=== PATIENT | female | born 1945 | race Caucasian/White ===

== ENCOUNTER → 2017-08-19 | Outpatient (CLI) | payer MEDICARE, OTHER ==
--- NOTE | 2017-08-19 14:49 | US ---
EXAMINATION TYPE: US pelvis complete transvag DATE OF EXAM: 08/19/2017 COMPARISON: CT CLINICAL HISTORY: R68.89 Abnormal pelvic exam. Pt states Dr may have felt right ovarian mass TECHNIQUE: Transvaginal (TV) and Transabdominal (TA) Date of LMP: Age 44 EXAM MEASUREMENTS: Uterus: 6.4 x 2.3 x 4.6 cm Endometrial Stripe: 0.3 cm 1. Uterus: Anteverted wnl for postmenopausal 2. Endometrium: wnl 3. Right Ovary: Obscured by overlying bowel gas 4. Left Ovary: Obscured by overlying bowel gas 5. Bilateral Adnexa: Many peristalsing bowel loops and dilated blood vessels seen bilateral adnexas 6. Posterior cul-de-sac: wnl IMPRESSION: 1. Paraovarian varices.
== END | disposition home or self-care (01) ==
LOC: RADUSWWP 12:59
PROVIDERS: ATTEND Obstetrics & Gynecology
DX: I86.2 Pelvic varices (principal)
CPT/HCPCS: 76830; 76856; 77063; 77080

== ENCOUNTER → 2017-08-19 | Outpatient (CLI) | payer MEDICARE, OTHER ==
--- NOTE | 2017-08-19 15:15 | BD ---
EXAMINATION TYPE: MG DEXA axial skeleton. DATE OF EXAM: 08/19/2017 COMPARISON: NONE CLINICAL HISTORY: M85.9 disorder of bone density Height: 5 FT 4 1/2 Weight: 131 FRAX RISK QUESTIONS: Alcohol (3 or more units per day): NO Family History (Parent hip fracture): NO Glucocorticoids (More than 3mos): NO (Ex: prednisone, prednisolone, methylprednisolone, dexamethasone, and hydrocortisone). History of Fracture in Adulthood: YES Secondary Osteoporosis: 1. Type 1 Diabetes: NO 2. Hyperthyroidism: NO 3. Menopause before 45: YES 4. Malnutrition: NO 5. Chronic liver disease: NO Rheumatoid Arthritis: NO Current Tobacco Use: NO RISK FACTORS HISTORY OF: History of Wrist Fracture: PHILIP WRISTS When: 2011 Surgery to Spine/Hip(right/left)/Wrist (right/left): PHILIP WRISTS When: 2011 Family History of Osteoporosis: YES Active: YES Postmenopausal woman: AGE 44 Take estrogen and/or progesterone medications: AGE 44- 56 Lost more than 2 inches in height since high school: YES MEDICATIONS: Additional Medications: PIROXITINE, CLONAZIPAM, HYDROCODONE, Additional History: SLEEP DISORDER EXAM MEASUREMENTS: Bone mineral densitometry was performed using the [employer] System. Bone mineral density as measured about the Lumbar spine is: ----- L1-L4(G/cm2): 0.998 T Score Values are as follows: ----- L2: -2.3 ----- L3: -1.5 ----- L4: -0.7 ----- L1-L4: -1.5 Bone mineral density has: INCREASED 0.7 % since study of: 2014 Bone mineral density about the R hip (g/cm2): 0.770 Bone mineral density about the L hip (g/cm2): 0.715 T Score values are as follows: -----R Neck: -1.9 -----L Neck: -2.3 -----R Total: -1.4 -----L Total: -1.8 Bone mineral density has: INCREASED 0.6 % since study of: 2014 IMPRESSION: Osteopenia NOTE: T-SCORE=SD OF THE YOUNG ADULT MEAN.
--- NOTE | 2017-08-24 07:13 | MM ---
Reason for exam: screening (asymptomatic). Last mammogram was performed 1 year and 3 months ago. History: Patient is postmenopausal and has history of other cancer at age 64. Family history of breast cancer in mother at age 85, breast cancer in paternal cousin at age 48, breast cancer in maternal aunt, and breast cancer in maternal grandmother. Benign core biopsy of the left breast, 1991. Took estrogen for 13 years beginning at age 44. Took progesterone for 13 years beginning at age 44. Physical Findings: A clinical breast exam by your physician is recommended on an annual basis and results should be correlated with mammographic findings. MG 3D Screening Mammo W/Cad Bilateral CC and MLO view(s) were taken. Prior study comparison: June 02, 2016, bilateral MG 3d screening mammo w/cad. May 30, 2015, bilateral MG screening mammo w CAD. There are scattered fibroglandular densities. No significant changes when compared with prior studies. ASSESSMENT: Benign, BI-RAD 2 RECOMMENDATION: Routine screening mammogram of both breasts in 1 year.
== END | disposition home or self-care (01) ==
LOC: RADMAMWWP 13:02
PROVIDERS: ATTEND Obstetrics & Gynecology
DX: Z12.31 Encounter for screening mammogram for malignant neoplasm of breast (principal); M85.80 Other specified disorders of bone density and structure, unspecified site; Z80.3 Family history of malignant neoplasm of breast; M89.9 Disorder of bone, unspecified; Z13.820 Encounter for screening for osteoporosis
CPT/HCPCS: 77080; 77063; G0202

== ENCOUNTER → 2017-10-12 | Outpatient (CLI) | payer MEDICARE, OTHER ==
--- NOTE | 2017-10-12 14:50 | CTL ---
EXAMINATION TYPE: CT Low Dose Lung DATE OF EXAM ORDERED: 10/12/2017 COMPARISON: None HISTORY: . Low Dose CT Lung Screening CT DLP: 56.[address] CTDI: 1.6 mGy IV CONTRAST USED: None. SCREENING VISIT: First visit COMPARISON: None. TECHNIQUE: Low dose computed tomography scan was performed through the chest at 1 millimeter thick se ctions and reconstructed images in the coronal plane at [address] DIAGNOSTIC QUALITY: Satisfactory FINDINGS: LUNG NODULES: Not presentLeft lung: no nodules identified.Right lung: no nodules identified. LUNGS: COPD: Severity: None Fibrosis: Severity:None Lymph nodes: None Other findings: None RIGHT PLEURAL SPACE: Effusion: None Calcification: None Thickening: None Pneumothorax: None LEFT PLEURAL SPACE: Effusion: None Calcification: None Thickening: None Pneumothorax: None HEART: Heart Size: Mildly enlarged Coronary calcification: Mild Pericardial effusion: None OTHER FINDINGS: Upper abdomen: No significant abnormality Bony thorax: Degenerative changes Supraclavicular region: No significant abnormalityOther: No significant abnormalityI IMPRESSION: Negative FOLLOW UP CT CHEST RECOMMENDATION: Follow-up screening in one year CT LUNG RAD: LUNG RAD CATEGORY 1
--- NOTE | 2017-10-13 12:50 | ECHOF ---
Referral Reason:I34.0 Nonrheumatic mitral (valve) insufficiency... MEASUREMENTS -------- HEIGHT: 165.1 cm WEIGHT: 58.5 kg BP: RVIDd: 3.2 cm (< 3.3) IVSd: 0.7 cm (0.6 - 1.1) LVIDd: 3.8 cm (3.9 - 5.3) LVPWd: 0.8 cm (0.6 - 1.1) IVSs: 0.9 cm LVIDs: 2.9 cm LVPWs: 1.0 cm LAESV Index (A-L): 29.76 ml/m Ao Diam: 2.5 cm (2.0 - 3.7) AV Cusp: 1.6 cm (1.5 - 2.6) LA Diam: 3.7 cm (2.7 - 3.8) RAP: 5.00 mmHg RVSP: 39.24 mmHg FINDINGS -------- Sinus rhythm. This was a technically good study. The left ventricular size is normal. There is mild concentric left ventricular hypertrophy. Overa ll left ventricular systolic function is low-normal with, an EF between 50 - 55 %. The right ventricle is mildly enlarged. LA is moderately dilated 34-39 ml/m2 The right atrium is moderately enlarged. The aortic valve is trileaflet and appears structurally normal. There is no evidence of aortic regu rgitation. The mitral valve leaflets are mildly thickened. Zujvxvqr-dv-eznseu mitral regurgitation is present. There is mild mitral valve prolapse. Severe tricuspid regurgitation present. There is mild pulmonary hypertension. The right ventricul ar systolic pressure, as measured by Doppler, is 39.24mmHg. Mild prolapse of the septal tricuspid v alve leaflet. Trace/mild (physiologic) pulmonic regurgitation. The aortic root size is normal. There is no pericardial effusion. CONCLUSIONS -------- 1. Sinus rhythm. 2. This was a technically good study. 3. The left ventricular size is normal. 4. There is mild concentric left ventricular hypertrophy. 5. Overall left ventricular systolic function is low-normal with, an EF between 50 - 55 %. 6. LA is moderately dilated 34-39 ml/m2 7. The right atrium is moderately enlarged. 8. The aortic valve is trileaflet and appears structurally normal. 9. The mitral valve leaflets are mildly thickened. 10. Hkpbdssj-qc-sifpii mitral regurgitation is present. 11. There is mild mitral valve prolapse. 12. Severe tricuspid regurgitation present. 13. There is mild pulmonary hypertension. 14. The right ventricular systolic pressure, as measured by Doppler, is 39.24mmHg. 15. Trace/mild (physiologic) pulmonic regurgitation. 16. The aortic root size is normal. 17. There is no pericardial effusion. CODER: Tasia Fox RDCS
== END | disposition home or self-care (01) ==
LOC: RADECHMAIN 13:13
PROVIDERS: ATTEND Internal Medicine
DX: Z12.2 Encounter for screening for malignant neoplasm of respiratory organs (principal); I08.1 Rheumatic disorders of both mitral and tricuspid valves; I27.20 Pulmonary hypertension, unspecified; Z87.891 Personal history of nicotine dependence
CPT/HCPCS: 93306; G0297

== ENCOUNTER 2017-10-21 05:57 | Day surgery (SDC) | payer MEDICARE, OTHER ==
[2017-10-20 15:03] VITALS: BMI 21.3
[2017-10-21] MEDS ORDERED: NITROGLYCERIN SL TABS 0.4 MG TAB SUBLINGUAL PRN (06:01)
[2017-10-21] MEDS ORDERED: ASPIRIN 325 MG TAB PO STA (06:01)
[2017-10-21] MEDS ORDERED: ALPRAZolam 0.5 MG TAB PO PRN (06:01)
[2017-10-21] MEDS ORDERED: SODIUM CHLORIDE 0.9% 1,000 ML in EMPTY BAG 1 BAG IV ONE (06:01)
[2017-10-21] MEDS ORDERED: ALPRAZolam 0.25 MG TAB PO PRN (06:01)
[2017-10-21] MEDS ORDERED: MIDAZOLAM 2 MG/2 ML VIAL ONE (06:46)
[2017-10-21] MEDS ORDERED: fentaNYL (PF) 50 MCG/ML 2 ML AMP ONE (06:46)
[2017-10-21] MEDS ORDERED: SODIUM CHLORIDE 0.9% 1,000 ML IV ONE ×2 (06:51→08:26)
[2017-10-21 07:01] VITALS: TEMP 97.9
[2017-10-21] MEDS ORDERED: BENZOCAINE SPRAY 1 CAN MUCOUS MEM ONE (07:01)
[2017-10-21 07:09] LABS: Basophils % (A) 1 %; Eosinophils # (A) 0.1 k/uL (0-0.7); Eosinophils % (A) 3 %; HGB 12.4 gm/dL (11.4-16.0); Lymphocytes # (A) 1.3 k/uL (1.0-4.8); Lymphocytes % (A) 36 %; MCH 30.1 pg (25.0-35.0); MCHC 31.8 g/dL (31.0-37.0); MCV 94.5 fL (80.0-100.0); Mean Platelet Volume 7.6; Monocytes # (A) 0.2 k/uL (0-1.0); Monocytes % (A) 5 %; Neutrophils # (A) 1.9 k/uL (1.3-7.7); Neutrophils % (A) 52 %; Platelet Count 170 k/uL (150-450); RBC 4.12 m/uL (3.80-5.40); RDW 13.7 % (11.5-15.5); WBC 3.6 k/uL (3.8-10.6)
[2017-10-21] MEDS ORDERED: MIDAZOLAM 2 MG/2 ML VIAL IV ONE (07:10)
[2017-10-21] MEDS ORDERED: fentaNYL (PF) 50 MCG/ML 2 ML AMP IV ONE (07:10)
[2017-10-21 07:20] VITALS: PULSE 67
[2017-10-21 07:22] LABS: Anion Gap 9 mmol/L; Blood Urea Nitrogen 24 mg/dL (7-17); Calcium 9.3 mg/dL (8.4-10.2); Carbon Dioxide 28 mmol/L (22-30); Chloride 108 mmol/L (98-107); Glucose 84 mg/dL (74-99); Potassium 4.3 mmol/L (3.5-5.1); Sodium 145 mmol/L (137-145)
[2017-10-21] MEDS ORDERED: MIDAZOLAM 2 MG/2 ML VIAL IVP ONE (07:52)
[2017-10-21] MEDS ORDERED: LIDOCAINE 2% INJ 20 MG/ML SQ ONE (07:55)
[2017-10-21 08:20] LABS: O2 Sat Blood Gas 98.3 %
[2017-10-21] MEDS ORDERED: IOHEXOL 350 MG/ML 125ML BOTTLE INJ ONE (08:26)
[2017-10-21 08:27] LABS: O2 Sat Blood Gas 70.8 %
[2017-10-21 08:30] LABS: O2 Sat Blood Gas 70.5 %
[2017-10-21] MEDS ORDERED: RX INFO: IV CONTRAST WAS GIVEN 1 EACH MISC MISCELLANE PRN (08:37)
[2017-10-21] MEDS ORDERED: HYDROcodone/APAP 5-325MG 1 EACH TAB PO PRN (08:38)
[2017-10-21] MEDS ORDERED: TRIAMTERENE-HCTZ 37.5-25MG 1 EACH TAB PO PRN (08:38)
[2017-10-21] MEDS ORDERED: NAPROXEN 250 MG TAB PO PRN (08:38)
[2017-10-21] MEDS ORDERED: SODIUM CHLORIDE 0.9% 1,000 ML IV SCH (08:45)
[2017-10-21] MEDS ORDERED: PARoxetine 10 MG TAB PO SCH (09:00)
[2017-10-21] MEDS ORDERED: NON-FORMULARY DRUG (Vitamin B Complex [Vitamin B Complex] 1 EACH) PO SCH (09:00)
[2017-10-21] MEDS ORDERED: ATORVASTATIN 40 MG TAB PO SCH (09:00)
[2017-10-21] MEDS ORDERED: PSYLLIUM HUSK 100% 6 GM PACKET PO SCH (09:00)
[2017-10-21] MEDS ORDERED: NON-FORMULARY DRUG (Cholecalciferol (Vitamin D3) [Vitamin D3] 2,000 UNIT) PO SCH (09:00)
--- NOTE | 2017-10-21 09:02 | ECHOT ---
TRANSESOPHAGEAL ECHOCARDIOGRAM INDICATION: Evaluation of mitral valve. PROCEDURE: After explaining the procedure to the patient as well as risks and complications, the blood pressure, heart rate, O2 saturation was monitored. Throat was sprayed with Cetacaine. She received 2 mg of intravenous Versed and 50 mcg intravenous fentanyl. After achieving moderate conscious sedated state, the probe was introduced in the esophagus without difficulty. Images were obtained. Following that, the probe was removed. FINDINGS: Left atrial size is mildly dilated. Left atrial appendage is normal. Left ventricular size is normal. The ejection fraction is estimated 50% to 55%. The aortic valve appears to be normal. The mitral valve revealed mild prolapse. The tricuspid valve is mildly thickened. No pericardial effusion was noted. Contrast bubble study revealed a [id number]-vc-ukem shunting with Valsalva maneuver across a patent foramen ovale. The descending thoracic aorta appears to be normal. Doppler pulse wave and color Doppler obtained and revealed a mild to moderate mitral with moderate to severe tricuspid regurgitation. There was no evidence of shunting by color Doppler study. CONCLUSION: 1. Mildly dilated left atrium with normal appearance of left atrial appendage. 2. Left ventricular ejection fraction of 50% to 55%. 3. Mild mitral valve prolapse with mild to moderate mitral regurgitation. 4. Moderate to severe tricuspid regurgitation with thickening of the tricuspid valve leaflets. 5. Evidence of patent foramen ovale with aragt-pq-zueu shunting with Valsalva maneuver and contrast bubble study. 6. No pericardial effusion. 7. Normal appearance of the descending thoracic aorta. MMODL / IJN: [id number] /
--- NOTE | 2017-10-21 09:44 | CC ---
CARDIAC CATHETERIZATION REPORT HISTORY: Ms. Ag is a 71-year-old female with a known history of hyperlipidemia who recently has been complaining of progressive fatigue and was noted to have a heart murmur. Her echocardiogram showed a moderate mitral with moderate to severe tricuspid regurgitation. In view of that, recommendation made regarding cardiac catheterization. The procedure, as well as the risks and complications, were discussed with the patient who is in full understanding and agreement. PROCEDURE: Patient was brought to roofing laborer in a fasting semi-sedated state after receiving fentanyl Benadryl and achieving moderate conscious sedated state, using Xylocaine anesthesia and Seldinger technique, a 6-Argentine sheath was introduced in the right femoral artery. A 8-Argentine sheath in right femoral vein. A right heart catheterization was performed using [place]-Twin catheter. Multiple pressure and samples were obtained. Cardiac output by thermodilution was calculated. Following that, selective right and left coronary angiography performed using a 6-Argentine 4 bend right and left Amaris catheter. Multiple views of the coronary arteries, including hemiaxial views, were obtained. Following that, a 6-Argentine tight pigtail catheter was placed in the left ventricle and a 30 degree CALVO view of the left ventricle was obtained. Following that, the catheter and sheath were removed. Hemostasis was obtained with compression of the right groin. There were no immediate complications. Patient was returned to her room in stable condition. FINDINGS: HEMODYNAMICS: Pulmonary artery systolic pressure of 27 with a diastolic of 12 and a mean of 17 mmHg. Pulmonary capillary wedge pressure, A-wave of 14, V-wave 16, with a mean of 10 mmHg. Right ventricular systolic pressure of 28 with an end-diastolic of 8 mmHg. Right atrial A-wave of 10 and V-wave of 11 with a mean of 9 mmHg. Left ventricle end-diastolic pressure of 16 to 20 mmHg. There was no gradient across the aortic valve. Cardiac output by thermodilution of 3.5 L/minute and by Sd of 3.4 L/minute. The RA saturation is 71. PA saturation 71. Femoral artery saturation of 98%. CORONARIES: 1. LEFT MAIN: This is a large-sized vessel, bifurcating in left circumflex, left anterior descending artery. Left main coronary artery is without any significant obstructive coronary disease. 2. LEFT ANTERIOR DESCENDING ARTERY: This is a large-sized vessel, reaching toward the apex, tapers down in distal third. Gives rise to a large diagonal branch proximally. The left anterior descending artery and its branches have no evidence of obstructive coronary artery disease. 3. LEFT CIRCUMFLEX: This is a nondominant vessel, moderate in caliber, giving rise to 3 obtuse marginal branches. The second one is the largest in caliber. The left circumflex and its branches have no evidence of obstructive disease. 4. RIGHT CORONARY ARTERY: This is a dominant vessel, moderate caliber, has a posterior takeoff. The right coronary artery bifurcated distally to PDA and posterolateral segment and branches. The right coronary artery and its branches have no evidence of obstructive coronary disease. 5. LEFT VENTRICULOGRAM: Left ventriculogram performed in performed in 30 degree CALVO view and revealed normal left ventricular size. The ejection fraction is 50% to 55%. There was 2 to 3+ mitral regurgitation, some of it induced by arrhythmia. CONCLUSION: 1. Normal coronary arteries. 2. Moderate mitral regurgitation. RECOMMENDATIONS: At this time, I will recommend continue medical therapy with aggressive coronary risk modifications being initiated, with close followup for the mitral valve. Those findings and recommendations were discussed with the patient and her family who are in full understanding and agreement. DURATION OF PROCEDURE: 40 minutes. MMODL / IJN: [id number] /
--- NOTE | 2017-10-21 09:47 | CC ---
CARDIAC CATHETERIZATION REPORT October 21, 2017 Dr. Frederick Banegas RE: Jaz Ag Dear Dr. Ag: I had the opportunity to perform cardiac catheterization on Ms. Ag at [facility] on the 21 of October. A full copy of the procedure note will be forwarded to you. In brief, she was found to have no evidence of obstructive coronary artery disease with evidence of moderate mitral regurgitation. Based on those findings, I recommend continued medical therapy with close followup with her mitral valve. Depending on her progress, further recommendation will be made. Thank you again for allowing me the opportunity to participate in this patient's care. Please feel free to call with any questions. Sincerely, MD SANJUANITA VitaleL / NEILN: [phone] /
[2017-10-21 14:53] VITALS: RESP 18
[2017-10-21 15:35] VITALS: BP 95/62
[2017-10-21] MEDS ORDERED: clonazePAM 1 MG TAB PO SCH (21:00)
[2017-10-22] MEDS ORDERED: ASPIRIN 81 MG PO SCH (09:00)
== END 2017-10-21 15:45 | disposition home or self-care (01) ==
LOC: CATHCVL 05:57
PROVIDERS: ATTEND Internal Medicine Interventional Cardiology
DX: I08.1 Rheumatic disorders of both mitral and tricuspid valves (principal); Q21.1 Atrial septal defect; E78.2 Mixed hyperlipidemia; R01.1 Cardiac murmur, unspecified; I42.9 Cardiomyopathy, unspecified; E78.00 Pure hypercholesterolemia, unspecified; Z82.49 Family history of ischemic heart disease and other diseases of the circulatory system; Z87.891 Personal history of nicotine dependence; Z79.82 Long term (current) use of aspirin; Z79.899 Other long term (current) drug therapy
CPT/HCPCS: 93312; 93320; 93325; 93460; 80048; 85018; 82810; 85025; C1894 ×2; C1769; J2001; J2250; J3010; Q9967

== ENCOUNTER → 2017-12-09 | Outpatient (CLI) | payer MEDICARE, OTHER ==
[2017-12-09 10:01] LABS: ALT 25 U/L (9-52); AST 30 U/L (14-36); Cholesterol 188 mg/dL (<200); HDL Cholesterol 88 mg/dL (40-60); LDL Cholesterol,Calculated 81 mg/dL (0-99); Triglycerides 95 mg/dL (<150)
== END | disposition home or self-care (01) ==
LOC: LABWHC1 09:16
PROVIDERS: ATTEND Internal Medicine Interventional Cardiology
DX: E78.2 Mixed hyperlipidemia (principal)
CPT/HCPCS: 36415; 80061; 84450; 84460

== ENCOUNTER → 2018-09-01 | Outpatient (CLI) | payer MEDICARE, OTHER ==
--- NOTE | 2018-09-08 14:09 | MM ---
Reason for exam: screening (asymptomatic). Last mammogram was performed 1 year ago. History: Patient is postmenopausal and has history of other cancer at age 64. Family history of breast cancer in mother at age 85, breast cancer in paternal cousin at age 48, breast cancer in maternal aunt, and breast cancer in maternal grandmother. Benign core biopsy of the left breast, 1991. Took estrogen for 13 years beginning at age 44. Took progesterone for 13 years beginning at age 44. MG 3D Screening Mammo W/Cad Bilateral CC and MLO view(s) were taken. XCCM view(s) were taken of the right breast. Prior study comparison: August 19, 2017, bilateral MG 3d screening mammo w/cad. June 02, 2016, bilateral MG 3d screening mammo w/cad. There are scattered fibroglandular densities. No significant changes when compared with prior studies. ASSESSMENT: Benign, BI-RAD 2 RECOMMENDATION: Routine screening mammogram of both breasts in 1 year.
== END ==
LOC: RADMAMWWP 11:29
PROVIDERS: ATTEND Obstetrics & Gynecology
DX: Z12.31 Encounter for screening mammogram for malignant neoplasm of breast (principal)
CPT/HCPCS: 77063; 77067

== ENCOUNTER → 2018-10-14 | Outpatient (CLI) | payer MEDICARE, OTHER ==
--- NOTE | 2018-10-14 14:59 | US ---
EXAMINATION TYPE: US transvaginal DATE OF EXAM: 10/14/2018 COMPARISON: US 08/19/2017, CT 02/07/2013 CLINICAL HISTORY: R10.2 PELVIC PAIN. TECHNIQUE: . Transvaginal sonographic images of the pelvis were acquired. Date of LMP: Age 50-55 EXAM MEASUREMENTS: Uterus: 5.8 x 2.5 x 3.0 cm Endometrial Stripe: 0.8 cm Right Ovary: Not visualized Left Ovary: Not visualized 1. Uterus: Anteverted Heterogeneous 2. Endometrium: Appears thickened 3. Right Ovary: Obscured by overlying bowel gas 4. Left Ovary: Obscured by overlying bowel gas 5. Bilateral Adnexa: Prominent vessels visualized 6. 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 Endometrium is also thickened for a postmenopaus al female measuring 8 mm. Sonohysterogram could be performed for further evaluation or direct visuali zation.
== END | disposition home or self-care (01) ==
LOC: RADUSWWP 13:35
PROVIDERS: ATTEND Obstetrics & Gynecology
DX: N95.8 Other specified menopausal and perimenopausal disorders (principal); I87.8 Other specified disorders of veins; R10.2 Pelvic and perineal pain
CPT/HCPCS: 76830

== ENCOUNTER → 2018-10-19 | Outpatient (CLI) | payer MEDICARE, OTHER ==
[2018-10-19 15:35] LABS: Basophils # (A) 0.1 k/uL (0-0.2); Basophils % (A) 1 %; Eosinophils # (A) 0.1 k/uL (0-0.7); Eosinophils % (A) 1 %; HCT 41.6 % (34.0-46.0); HGB 13.2 gm/dL (11.4-16.0); Lymphocytes # (A) 1.4 k/uL (1.0-4.8); Lymphocytes % (A) 31 %; MCH 30.4 pg (25.0-35.0); MCHC 31.8 g/dL (31.0-37.0); MCV 95.7 fL (80.0-100.0); Mean Platelet Volume 6.9; Monocytes # (A) 0.3 k/uL (0-1.0); Monocytes % (A) 6 %; Neutrophils # (A) 2.5 k/uL (1.3-7.7); Neutrophils % (A) 57 %; Platelet Count 180 k/uL (150-450); RBC 4.35 m/uL (3.80-5.40); RDW 13.6 % (11.5-15.5); WBC 4.5 k/uL (3.8-10.6)
--- NOTE | 2018-10-20 07:57 | CT ---
EXAMINATION TYPE: CT abdomen pelvis w con DATE OF EXAM: 02/07/2013 COMPARISON: 09/27/2013 HISTORY: Abdominal pain and weight loss CT DLP: 817 mGycm CONTRAST: CT scan of the abdomen and pelvis is performed with Oral Contrast and with IV Contrast, patient injec stephan with 80 mL of Isovue 300. FINDINGS: LUNG BASES-: No visible nodule. No infiltrate. There is evidence of cardiomegaly. LIVER/GB: No calcified gallstones. No space occupying hepatic lesion. Biliary tree is of normal ca liber. PANCREAS: No inflammation. No distinct mass. SPLEEN: No splenic enlargement. No lesion seen. ADRENALS: No nodule. No thickening. KIDNEYS/BLADDER: No hydronephrosis. No nephrolithiasis. No distinct solid renal mass. 1 cm cyst m idpole left kidney. Urinary bladder grossly unremarkable. BOWEL: Normal appendix. Normal bowel caliber. No inflammation. There is evidence of severe fecal st asis. GENITAL ORGANS: No gross abnormality. LYMPH NODES: No greater than 1cm abdominal or pelvic lymph nodes are appreciated. AORTA: No significant abnormality. OSSEOUS STRUCTURES: No significant abnormality is seen. OTHER: No significant additional abnormality is seen. IMPRESSION: 1. Severe constipation. 2. Cardiomegaly. 3. Simple cyst left kidney.
--- NOTE | 2018-10-20 09:38 | CTL ---
EXAMINATION TYPE: CT Low Dose Lung DATE OF EXAM ORDERED: 10/20/2018 COMPARISON: 10/12/2017 HISTORY: . Low Dose CT Lung Screening CT DLP: [address] CTDI: 1.64 mGy IV CONTRAST USED: None. SCREENING VISIT: Second visit COMPARISON: None. TECHNIQUE: Low dose computed tomography scan was performed through the chest at 1 millimeter thick se ctions and reconstructed images in the coronal plane at [address] DIAGNOSTIC QUALITY: Satisfactory FINDINGS: LUNG NODULES: Not presentLeft lung: no nodules identified.Right lung: no nodules identified. LUNGS: COPD: Severity: None Fibrosis: Severity:None Lymph nodes: None Other findings: None RIGHT PLEURAL SPACE: Effusion: None Calcification: None Thickening: None Pneumothorax: None LEFT PLEURAL SPACE: Effusion: None Calcification: None Thickening: None Pneumothorax: None HEART: Heart Size: Mildly enlarged Coronary calcification: Mild Pericardial effusion: None OTHER FINDINGS: Upper abdomen: No significant abnormality Bony thorax: Degenerative changes Supraclavicular region: No significant abnormalityOther: No significant abnormalityI IMPRESSION: Negative FOLLOW UP CT CHEST RECOMMENDATION: Follow-up screening in one year LUNG RAD CATEGORY 1
== END | disposition home or self-care (01) ==
LOC: RADCTMAIN 14:43
PROVIDERS: ATTEND Internal Medicine
DX: Z12.2 Encounter for screening for malignant neoplasm of respiratory organs (principal); K59.00 Constipation, unspecified; N28.1 Cyst of kidney, acquired
CPT/HCPCS: 82565; 84520; 85025; 74177; 36415; G0297; Q9967

== ENCOUNTER 2018-10-25 06:28 | Day surgery (SDC) | payer MEDICARE, OTHER ==
--- NOTE | 2018-10-24 20:20 | P.HPOB ---
History of Present Illness H&P Date: 10/24/18 Chief Complaint: Endometrial thickening This is a 72-year-old female 2 para 2 who presents for dilation and curettage with hysteroscopy secondary to endometrial thickening on ultrasound. Pelvic ultrasound was performed due to pelvic pain. Her uterus measured 5.8 x 2.5 x 3 cm with an endometrial thickness of 8 mm. Neither ovary was well visualized. She denies having any vaginal bleeding. In addition she has been experiencing vaginal introital pain. She has been using estrogen cream with minimal improvement. Obstetrical history: . History of 2 vaginal deliveries. Gynecologic history: No history of sexual transmitted diseases. Social history: She is . She has been with her current boyfriend for several years. She is retired. Review of Systems Constitutional: Reports fatigue, Denies chills, Denies fever Eyes: denies blurred vision, denies pain Ears, nose, mouth and throat: Denies headache, Denies sore throat Cardiovascular: Denies chest pain, Denies shortness of breath Respiratory: Denies cough Gastrointestinal: Reports constipation Genitourinary: Reports dysuria, Reports pelvic pain, Reports vaginal dryness, Denies abnormal vaginal bleeding Menstruation: Reports postmenopausal Musculoskeletal: Reports low back pain, Reports myalgias Integumentary: Denies pruritus, Denies rash Neurological: Reports weakness (Hands) Psychiatric: Reports anxiety, Reports depression, Reports insomnia Endocrine: Reports fatigue, Denies weight change Hematologic/Lymphatic: Reports easy bruising Past Medical History Past Medical History: Cancer, Hyperlipidemia Additional Past Medical History / Comment(s): mitral valve and tricuspid regurgitation, ? mild pulmonary htn, REM sleep disorder, hx skin CA, sleep behavior disorder, fibromyalgia History of Any Multi-Drug Resistant Organisms: None Reported Past Surgical History: Adenoidectomy, Heart Catheterization, Orthopedic Surgery , Tonsillectomy, Tubal Ligation Additional Past Surgical History / Comment(s): PREV d&C, rt thumb arthroplasty 06-03-17,lt thumb arthroplasty,anuja wrist ORIF,pilonidal cyst,breast bx, anuja cataracts, OFELIA Additional Past Anesthesia/Blood Transfusion Reaction / Comment(s): has had trouble waking up from anesthesia Past Psychological History: Anxiety Smoking Status: Former smoker Past Alcohol Use History: Occasional Past Drug Use History: None Reported - Past Family History Mother Family Medical History: Cancer Additional Family Medical History / Comment(s): breast,endometrial,extensive heart hx Father Family Medical History: Cancer, Diabetes Mellitus Additional Family Medical History / Comment(s): prostate Medications and Allergies Home Medications Medication Instructions Recorded Confirmed Type Aspirin 81 mg PO DAILY 10/20/17 10/20/18 History Cholecalciferol (Vitamin D3) 2,000 unit PO DAILY 10/20/17 10/20/18 History [Vitamin D3] HYDROcodone/APAP 5-325MG [[place] 1 tab PO TID 10/20/17 10/20/18 History 5-325] Naproxen Sodium [Aleve] 220 mg PO BID PRN 10/20/17 10/20/18 History PARoxetine [Paxil] 10 mg PO BID 10/20/17 10/20/18 History Prunelax Supplement 1 - 3 cap PO DAILY PRN 10/20/17 10/20/18 History Psyllium Husk 100% [Metamucil 1 dose PO DAILY 10/20/17 10/20/18 History Packet] Triamterene-Hctz 37.5-25Mg 0.5 cap PO DAILY PRN 10/20/17 10/20/18 History [Dyazide 37.5-25 Capsule] clonazePAM [KlonoPIN] 1 mg PO HS 10/20/17 10/20/18 History Estradiol Cream [Estrace Cream 1 applic VAGINAL DIRECTED 10/20/18 10/20/18 History 0.01%] Rosuvastatin Calcium 5 mg PO Q48H 10/20/18 10/20/18 History Allergies Allergy/AdvReac Type Severity Reaction Status Date / Time No Known Allergies Allergy Verified 10/20/18 10:32 Exam Osteopathic Statement: *. No significant issues noted on an osteopathic structural exam other than those noted in the History and Physical/Consult. HEENT: Within normal limits Heart: Regular rate and rhythm Lungs: Clear to auscultation bilaterally Abdomen: Soft, nontender Pelvic exam: Uterus is mildly tender, anteverted, with no adnexal masses, but bilateral tenderness noted. Introitus is slightly inflamed and mildly tender. Extremities: Negative Homans Assessment and Plan (1) Endometrial thickening on ultrasound Status: Acute Code(s): R93.89 - ABNORMAL FINDINGS ON DX IMAGING OF OTH BODY STRUCTURES SNOMED Code(s): 741230655 Plan: Proceed with dilation and curettage with hysteroscopy. I have discussed the risks, benefits, and alternative therapies for the above- mentioned procedure and for both sedation/anesthesia as well as necessary blood products administration, if indicated, as they pertain to this patient. The patient has indicated her understanding and acceptance of the risks and procedures discussed.
[~2018-10-25 06:28] MED LIST: DEXAMETHASONE SOD PHOSPHATE 10 MG/ML 1 ML VIAL IV ONE; HYDROmorphone 0.5 MG/0.5 ML SYRINGE IVP PRN; LACTATED RINGERS 1,000 ML IV SCH; MIDAZOLAM (PF) 2 MG/2 ML VIAL IV PRN; ONDANSETRON 4 MG/2 ML VIAL IVP ONE; Pre Op ABX Message 1 EACH MISC MISCELLANE ONE
[2018-10-25] MEDS ORDERED: LIDOCAINE 1% 20 ML VIAL (10MG/ML) FOR IV START INTRADERMA ONE (07:00)
[2018-10-25 07:04] VITALS: BMI 20.3
[2018-10-25] MEDS ORDERED: KETOROLAC 30 MG/ML 1 ML VIAL ONE (07:30)
[2018-10-25] MEDS ORDERED: PROPOFOL 10 MG/ML 20 ML VIAL IV ONE (07:30)
[2018-10-25] MEDS ORDERED: MIDAZOLAM 2 MG/2 ML VIAL ONE (07:30)
[2018-10-25] MEDS ORDERED: ePHEDrine SULFATE/0.9% NACL/PF 50 MG/5 ML SYRINGE IV ONE (07:30)
--- NOTE | 2018-10-25 08:00 | P.OP ---
Date of Procedure: 10/25/18 Preoperative Diagnosis: Endometrial thickening on ultrasound Postoperative Diagnosis: Same Procedure(s) Performed: Dilation and curettage with hysteroscopy Anesthesia: other (Mask general) Surgeon: Marisa Aaron Estimated Blood Loss (ml): 2 Pathology: other (Endometrial curettings) Condition: stable Disposition: same day Indications for Procedure: This is a 72-year-old female 2 para 2 who presents for dilation and curettage with hysteroscopy secondary to endometrial thickening on ultrasound. Pelvic ultrasound was performed due to pelvic pain. Her uterus measured 5.8 x 2.5 x 3 cm with an endometrial thickness of 8 mm. Neither ovary was well visualized. She denies having any vaginal bleeding. In addition she has been experiencing vaginal introital pain. She has been using estrogen cream with minimal improvement. Operative Findings: Uterus is anteverted, sounded to 5-1/2 cm. No adnexal masses are palpated. Upon hysteroscopy, atrophic endometrial pattern was noted with both tubal ostia visualized. No polyps or fibroids were visualized. Very scant endometrial curettings were obtained. Description of Procedure: The patient is taken to the operating room where she is placed in the dorsal lithotomy position. She is prepped and draped in the normal sterile fashion. Bladder is drained with a catheter and then removed. Examination is performed under anesthesia. Uterus is sounded be small, anteverted, with no adnexal masses palpated. Next a weighted speculum was paced in the patient's vagina. A forcep was used to visualize the anterior lip of the cervix. The anterior lip of the cervix was grasped with a single-tooth tenaculum. Next the cervix was gently dilated with Cortez dilator until a sound could be passed. Uterus is sounded to 5-1/2 cm. Next the cervix gently dilated further with Cortez dilators until a hysteroscope could be passed. Hysteroscopy was performed using normal saline. The above noted findings are made and pictures are taken. The hysteroscope was withdrawn. Next the cervix is gently dilated further and a small sharp curet was introduced. Sharp curettage was performed until a gritty texture was noted. Very scant tissue was obtained. Next the single- tooth tenaculum was removed. No bleeding was noted. All instruments are removed from the vagina. All sponge counts are correct.
[2018-10-25 08:14] VITALS: TEMP 98.5
[2018-10-25 08:23] VITALS: RESP 16
[2018-10-25] MEDS ORDERED: HYDROmorphone 1 MG/ML 1 ML SYRINGE IVP ONE (08:50)
[2018-10-25 09:26] VITALS: BP 116/77; PULSE 59
== END 2018-10-25 10:00 | disposition home or self-care (01) ==
LOC: OR 06:28
PROVIDERS: ATTEND Obstetrics & Gynecology
DX: R93.89 Abnormal findings on diagnostic imaging of other specified body structures (principal); R10.2 Pelvic and perineal pain; E78.5 Hyperlipidemia, unspecified; M79.7 Fibromyalgia; I10 Essential (primary) hypertension; Z85.828 Personal history of other malignant neoplasm of skin; Z87.891 Personal history of nicotine dependence; F41.9 Anxiety disorder, unspecified; F39 Unspecified mood [affective] disorder; Z79.82 Long term (current) use of aspirin; Z79.890 Hormone replacement therapy; Z79.891 Long term (current) use of opiate analgesic; Z79.899 Other long term (current) drug therapy
CPT/HCPCS: 58558; 88305; J2250; J1100; J2405; J1885; J1170; J2704

== ENCOUNTER → 2020-02-08 | Outpatient (CLI) | payer MEDICARE, OTHER ==
--- NOTE | 2020-02-13 11:08 | MM ---
Reason for exam: screening (asymptomatic). Last mammogram was performed 1 year and 5 months ago. History: Patient is postmenopausal and has history of other cancer at age 64. Family history of breast cancer in mother at age 85, breast cancer in paternal cousin at age 48, breast cancer in maternal aunt, and breast cancer in maternal grandmother. Benign core biopsy of the left breast, 1991. Took estrogen for 13 years beginning at age 44. Took progesterone for 13 years beginning at age 44. Physical Findings: A clinical breast exam by your physician is recommended on an annual basis and results should be correlated with mammographic findings. MG 3D Screening Mammo W/Cad Bilateral CC and MLO view(s) were taken. Prior study comparison: September 01, 2018, bilateral MG 3d screening mammo w/cad. August 19, 2017, bilateral MG 3d screening mammo w/cad. There are scattered fibroglandular densities. No significant changes when compared with prior studies. ASSESSMENT: Negative, BI-RAD 1 RECOMMENDATION: Routine screening mammogram of both breasts in 1 year.
== END | disposition home or self-care (01) ==
LOC: RADMAMWWP 15:34
PROVIDERS: ATTEND Obstetrics & Gynecology
DX: Z12.31 Encounter for screening mammogram for malignant neoplasm of breast (principal); Z80.3 Family history of malignant neoplasm of breast; N95.1 Menopausal and female climacteric states; M85.9 Disorder of bone density and structure, unspecified
CPT/HCPCS: 77063; 77067

== ENCOUNTER → 2020-02-12 | Outpatient (CLI) | payer MEDICARE, OTHER ==
[2020-02-12 18:09] LABS: African American GFR (CKD) 85.4 (60.0-200.0); Albumin 4.4 g/dL (3.80-4.90); Albumin/Globulin Ratio 1.76 (1.60-3.17); Anion Gap 5.9 mmol/L (4.00-12.00); BUN/Creat Ratio 26.25 Ratio (12.00-20.00); Calcium 9.4 mg/dL (8.7-10.3); Carbon Dioxide 29.1 mmol/L (21.6-31.8); Globulin 2.5 g/dL (1.6-3.3); LDL Cholesterol,Calculated 57.2 mg/dL (0.0-131.0); Non-African American GFR(CKD) 73.7 (60.0-200.0); Potassium 4.3 mmol/L (3.5-5.5); Total Bilirubin 0.7 mg/dL (0.2-1.2); Total Protein 6.9 g/dL (6.2-8.2); VLDL Calculation 17.8 mg/dL (5.00-40.00)
== END | disposition home or self-care (01) ==
LOC: LABWHC1 09:01
PROVIDERS: ATTEND Internal Medicine Interventional Cardiology
DX: E78.2 Mixed hyperlipidemia (principal)
CPT/HCPCS: 36415; 80053; 80061

== ENCOUNTER → 2020-03-12 | Outpatient (CLI) | payer MEDICARE, OTHER ==
--- NOTE | 2020-03-12 18:00 | CTL ---
EXAMINATION TYPE: CT Low Dose Lung DATE OF EXAM ORDERED: 03/12/2020 HISTORY: Personal history tobacco use. Lung cancer screening CT DLP: 60.[address] CTDI: 1.6 mGy Automated exposure control for dose reduction was used. SCREENING VISIT: 3 COMPARISON: Prior CT 10/19/2018 TECHNIQUE: Low dose computed tomography scan was performed through the chest at 1 mm thick sections a nd reconstructed images in the coronal plane at [address] DIAGNOSTIC QUALITY: Satisfactory FINDINGS: LUNG NODULES: None. LUNGS: COPD: Severity: None Fibrosis: Severity: None Lymph nodes: Enlarged Other findings: RIGHT PLEURAL SPACE: Effusion: None Calcification: None Thickening: None Pneumothorax: None LEFT PLEURAL SPACE: Effusion: None Calcification: None Thickening: None Pneumothorax: None HEART: Heart Size: Normal Coronary calcification: Mild Pericardial effusion: None OTHER FINDINGS: Upper abdomen: Remarkable Bony thorax: There is a spinal curvature. Supraclavicular region: Normal Other: IMPRESSION: Negative FOLLOW UP CT CHEST RECOMMENDATION: [address] LUNG RAD: Lung-Rad 1 Negative
== END | disposition home or self-care (01) ==
LOC: RADCTMAIN 16:59
PROVIDERS: ATTEND Internal Medicine
DX: Z12.2 Encounter for screening for malignant neoplasm of respiratory organs (principal); Z87.891 Personal history of nicotine dependence

== ENCOUNTER → 2020-07-03 | Outpatient (CLI) | payer MEDICARE, OTHER ==
--- NOTE | 2020-07-03 14:35 | BD ---
EXAMINATION TYPE: Axial Bone Density DATE OF EXAM: 07/03/2020 COMPARISON: 08.19.2017 CLINICAL HISTORY: 74 YR OLD FEMALE......ICD-10 CODE: N95.1 POST MENOPAUSAL, M85.9 OSTEOPENIA Height: 63.8 Weight: 130 FRAX RISK QUESTIONS: Glucocorticoids (More than 3mos): YES (Ex: prednisone, prednisolone, methylprednisolone, dexamethasone, and hydrocortisone). History of Fracture in Adulthood: YES Secondary Osteoporosis: YES 3. Menopause before 45: YES 5. Chronic liver disease: LIVER ENZYME PROBLEMS RISK FACTORS HISTORY OF: YES, LEFT FOOT X2, RIBS, BOTH WRISTS WITH PLATES AND SCREWS, AN ADULT History of Wrist Fracture: YES BOTH Family History of Osteoporosis: YES, MOTHER, GR MOTHER WITH FXS Diet low in dairy products/other sources of calcium: YES Postmenopausal woman: YES, AT AGE 44 YRS OLD Take estrogen and/or progesterone medications: IN THE PAST FOR ABOUT 40 YRS...NONE NOW Lost more than 2 inches in height since high school: YES Hyperparathyroidism: NO Adrenal Insufficiency: NO MEDICATIONS: Prednisone or other steroids: FLONASE FOR MANY YRS Osteoporosis Medications: FOSAMAX, IN THE PAST....NONE NOW Additional Medications: STATIN FOR CHOLESTEROL, CLONOPIN, PAXIL, REFLUX, VIT D AND CALCIUM, NSAIDS AN D PAIN MEDS, Additional History: SLEEPING DISORDER, NIGHT TERRORS, CHOLESTEROL, VALVE LEAKAGE, REFLUX, ARTHRITIS, IBS EXAM MEASUREMENTS: Bone mineral densitometry was performed using the [employer]. Bone mineral density as measured about the Lumbar spine is: ----- L1-L4(G/cm2): 0.908 T Score Values are as follows: ----- L1: -2.8 ----- L2: -3.1 ----- L3: -2.4 ----- L4: -1.3 ----- L1-L4: -2.3 Bone mineral density has: Decreased -9.4ince study of: 08.19.2017 Bone mineral density about the R hip (g/cm2): 0.772 Bone mineral density about the L hip (g/cm2): 0.743 T Score values are as follows: -----R Neck: -2.4 -----L Neck: -2.5 -----R Total: -1.9 -----L Total: -2.1 Bone mineral density has: Decreased -6.2% SINCE 08.19.2017 STUDY FRAX%s: THERE IS A 37.0% CHANCE FOR A MAJOR OSTEOPOROTIC FX AND A 19.0% FOR HIP.....PROBABILITY FOR FX IN 10 YRS TIME IMPRESSION: Osteopenia (T Score between -2.5 and -1). There is slightly increased risk of fracture and the patient may be considered for treatment. Re-Screen 2-5 years. NOTE: T-SCORE=SD OF THE YOUNG ADULT MEAN.
== END | disposition home or self-care (01) ==
LOC: RADBDWWP 12:39
PROVIDERS: ATTEND Obstetrics & Gynecology
DX: M85.80 Other specified disorders of bone density and structure, unspecified site (principal)
CPT/HCPCS: 77080

== ENCOUNTER 2020-08-13 05:51 | Day surgery (SDC) | payer MEDICARE, OTHER ==
[2020-08-12 10:47] VITALS: BMI 21.4
[2020-08-13] MEDS ORDERED: SODIUM CHLORIDE 0.9% 500 ML 500 ML IV ONE (06:23)
[2020-08-13] MEDS ORDERED: fentaNYL (PF) 50 MCG/ML 2 ML AMP ONE (07:04)
[2020-08-13] MEDS ORDERED: MIDAZOLAM 2 MG/2 ML VIAL IV ONE (07:16)
[2020-08-13] MEDS ORDERED: BENZOCAINE SPRAY 1 CAN TOPICAL ONE (07:16)
[2020-08-13] MEDS ORDERED: fentaNYL (PF) 50 MCG/ML 2 ML AMP IV ONE (07:20)
[2020-08-13] MEDS ORDERED: SODIUM CHLORIDE 0.9% 1,000 ML IV SCH (07:45)
[2020-08-13] MEDS ORDERED: NAPROXEN 250 MG TAB PO PRN (07:46)
[2020-08-13] MEDS ORDERED: polyethylene glycoL 3350 17 GM POWD.PACK PO PRN (07:46)
[2020-08-13] MEDS ORDERED: ACETAMINOPHEN TAB 325 MG TAB PO PRN (07:46)
[2020-08-13] MEDS ORDERED: PARoxetine 10 MG TAB PO PRN (07:46)
[2020-08-13 07:51] VITALS: RESP 12
[2020-08-13] MEDS ORDERED: ESTRADIOL 0.1 MG/GM VAGINAL CREAM 42.5 GM TUBE VAGINAL SCH (08:00)
[2020-08-13] MEDS ORDERED: PSYLLIUM HUSK 100% 6 GM PACKET PO SCH (09:00)
[2020-08-13] MEDS ORDERED: CHOLECALCIFEROL 1,000 UNIT TAB PO SCH (09:00)
[2020-08-13] MEDS ORDERED: NON FORMULARY DRUG (Vitamin B Complex [Vitamin B Complex] 1 EACH Capsule) PO SCH (09:00)
[2020-08-13] MEDS ORDERED: NON FORMULARY DRUG (Cholecalciferol (Vitamin D3) [Vitamin D3] 2,000 UNIT Capsule) PO SCH (09:00)
[2020-08-13] MEDS ORDERED: FLUTICASONE 50MCG/SPRAY NASAL 16GM EA NOSTRIL SCH (09:00)
[2020-08-13] MEDS ORDERED: OXYBUTYNIN XL 5 MG TAB.ER.24 PO SCH (09:00)
[2020-08-13 09:32] VITALS: BP 101/60; PULSE 60
--- NOTE | 2020-08-13 11:38 | ECHOT ---
TRANSESOPHAGEAL ECHOCARDIOGRAM PROCEDURE PERFORMED: Transesophageal echocardiogram. INDICATION: Evaluation of mitral valve. PROCEDURE: After explaining the procedure to the patient and its risks and complication, blood pressure and heart rate, O2 saturation was monitored. The throat was sprayed with Cetacaine. She received 2 mg intravenous Versed, 50 mcg intravenous fentanyl. The probe was introduced into the esophagus without difficulties. Images were obtained. The probe was removed. There was no immediate complication. FINDINGS: Left atrial size is normal. Left atrial appendage is normal. Right atrial size is dilated. Left ventricular size and systolic function normal. The aortic valve appears to be normal. Mitral valve revealed mild thickening of mitral valve leaflets. Tricuspid valve is normal. No pericardial effusion was noted. Contrast bubble study revealed small shunting across the interatrial septum with Valsalva maneuver. Doppler: Pulse wave and color Doppler obtained and revealed a moderate multiple jet mitral regurgitation with moderate to severe tricuspid regurgitation. The estimated right ventricular systolic pressure was 35-36 mmHg. There with a small patent foramina ovale with [id number] shunting. CONCLUSION: 1. Dilated right atrium with severe tricuspid regurgitation and mild pulmonary hypertension. 2. Normal left ventricular size and systolic function. 3. Moderate multiple jets of mitral regurgitation. 4. Small patent foramina ovale with reversal of shunting with Valsalva maneuver. 5. No pericardial effusion. 6. Normal appearance of the aortic valve. MMODL / IJN: [id number] /
[2020-08-13] MEDS ORDERED: PANTOPRAZOLE 40 MG TABLET PO SCH (17:30)
[2020-08-13] MEDS ORDERED: ASPIRIN 81 MG PO SCH (21:00)
[2020-08-13] MEDS ORDERED: clonazePAM 1 MG TAB PO SCH (21:00)
[2020-08-13] MEDS ORDERED: PARoxetine 10 MG TAB PO SCH (21:00)
[2020-08-14] MEDS ORDERED: ATORVASTATIN 10 MG TAB PO SCH (09:00)
== END 2020-08-13 09:00 | disposition home or self-care (01) ==
LOC: CATHCVL 05:51
PROVIDERS: ATTEND Internal Medicine Interventional Cardiology
DX: I08.1 Rheumatic disorders of both mitral and tricuspid valves (principal); I27.20 Pulmonary hypertension, unspecified; Q21.1 Atrial septal defect; E78.2 Mixed hyperlipidemia; Z79.82 Long term (current) use of aspirin; Z79.899 Other long term (current) drug therapy; Z90.89 Acquired absence of other organs; Z98.49 Cataract extraction status, unspecified eye; Z87.891 Personal history of nicotine dependence; Z82.49 Family history of ischemic heart disease and other diseases of the circulatory system
CPT/HCPCS: 93312; 93320; 93325; J2250; J3010

== ENCOUNTER → 2020-10-16 | Outpatient (CLI) | payer MEDICARE, OTHER ==
--- NOTE | 2020-10-16 16:21 | US ---
EXAMINATION TYPE: US carotid duplex BILAT DATE OF EXAM: 10/16/2020 COMPARISON: NONE CLINICAL HISTORY: W19.XXA Unspecified fall, initial encounter; R55 Syncope. EXAM MEASUREMENTS: RIGHT: Peak Systolic Velocity (PSV) cm/sec ----- Right CCA: 73.5 ----- Right ICA: 87.5 ----- Right ECA: 66.0 ICA/CCA ratio: 1.2 RIGHT: End Diastole cm/sec ----- Right CCA: 26.6 ----- Right ICA: 32.8 ----- Right ECA: 11.6 LEFT: Peak Systolic Velocity (PSV) cm/sec ----- Left CCA: 68.4 ----- Left ICA: 87.9 ----- Left ECA: 58.8 ICA/CCA ratio: 1.3 LEFT: End Diastole cm/sec ----- Left CCA: 22.8 ----- Left ICA: 34.0 ----- Left ECA: 12.8 VERTEBRALS (direction of flow): Right Vertebral: Antegrade Left Vertebral: Antegrade Rhythm: Normal Bilateral intimal thickening, no elevated velocities, no significant stenosis. IMPRESSION: No significant flow-limiting stenosis bilateral carotid bifurcations. Criteria for Assigning % of Stenosis / Diameter reduction (Estimation based on the indirect measurements of the internal carotid artery velocities (ICA PSV). 1. Normal (no stenosis)=ICA PSV < 125 cm/s: ratio < 2.0: ICA EDV<40 cm/s. 2. Less than 50% stenosis=ICA PSV < 125 cm/s: ratio < 2.0: ICA EDV<40 cm/s. 3. 50 to 69% stenosis=ICA PSV of 125 to 230 cm/s: ration 2.0 ? 4.0: ICA EDV 40-100 cm/s. 4. Greater than 70% stenosis to near occlusion= ICA PSV > 230 cm/s: ratio > 4.0: ICA EDV > 100 cm/s. 5. Near occlusion= ICA PSV velocities may be low or undetectable: variable ratio and ICA EDV. 6. Total occlusion=unable to detect flow.
--- NOTE | 2020-10-16 18:17 | CT ---
EXAMINATION TYPE: CT brain wo con DATE OF EXAM: 10/16/2020 COMPARISON: 05/25/2011 HISTORY: Fall injury CT DLP: 1090.[address] of the brain was performed. The ventricles, basal cisterns and sulci overlying the cerebral convexities demonstrate mild enlargem ent. There is no evidence for intracranial hemorrhage or sulcal effacement. There is decreased attenuation about the periventricular white matter and deep white matter of both c erebral hemispheres, compatible with chronic small vessel ischemia. Differential diagnosis does inclu de demyelination. No mass effects are seen.No midline shift. Osseous calvarium is intact. If symptoms persist consider MRI. IMPRESSION: 1. Age related atrophic and chronic small vessel ischemic change without acute intracranial process s een at this time.
--- NOTE | 2020-10-17 08:16 | XR ---
EXAMINATION TYPE: XR chest 2V DATE OF EXAM: 10/16/2020 COMPARISON: NONE HISTORY: Shortness of breath TECHNIQUE: Frontal and lateral views of the chest are obtained. FINDINGS: Scattered senescent parenchymal changes noted. Hyperinflation compatible with COPD. No evidence for infiltrate. No evidence for atelectasis. Heart size is stable. Mediastinal structures are stable and grossly unremarkable. No evidence for hilar prominence. Degenerative changes dorsal spine. IMPRESSION: 1. No evidence for acute pulmonary disease.
== END | disposition home or self-care (01) ==
LOC: RADUSWWP 15:36
PROVIDERS: ATTEND Internal Medicine
DX: G31.1 Senile degeneration of brain, not elsewhere classified (principal); I67.82 Cerebral ischemia; R55 Syncope and collapse
CPT/HCPCS: 70450; 71046; 93880

== ENCOUNTER → 2020-10-29 | Outpatient (CLI) | payer MEDICARE, OTHER | END | disposition home or self-care (01) | LOC: CPPFTMAIN 10:14 | PROVIDERS: ATTEND Thoracic Surgery (Cardiothoracic Vascular Surgery) | DX: I36.1 Nonrheumatic tricuspid (valve) insufficiency (principal); R94.2 Abnormal results of pulmonary function studies | CPT/HCPCS: 94060; 94726; 94729 ==

== ENCOUNTER → 2021-02-20 | Outpatient (CLI) | payer MEDICARE, OTHER ==
--- NOTE | 2021-02-21 11:16 | MM ---
Reason for exam: screening (asymptomatic). Last mammogram was performed 1 year ago. History: Patient is postmenopausal and has history of other cancer at age 64. Family history of breast cancer in mother at age 85, breast cancer in paternal cousin at age 48, breast cancer in maternal aunt, and breast cancer in maternal grandmother. Benign core biopsy of the left breast, 1991. Took estrogen for 13 years beginning at age 44. Took progesterone for 13 years beginning at age 44. Physical Findings: A clinical breast exam by your physician is recommended on an annual basis and results should be correlated with mammographic findings. MG 3D Screening Mammo W/Cad Bilateral CC and MLO view(s) were taken. Prior study comparison: February 08, 2020, bilateral MG 3d screening mammo w/cad. September 01, 2018, bilateral MG 3d screening mammo w/cad. There are scattered fibroglandular densities. ASSESSMENT: Benign, BI-RAD 2 RECOMMENDATION: Routine screening mammogram of both breasts in 1 year.
== END | disposition home or self-care (01) ==
LOC: RADMAMWWP 10:20
PROVIDERS: ATTEND Obstetrics & Gynecology
DX: Z12.31 Encounter for screening mammogram for malignant neoplasm of breast (principal); Z78.0 Asymptomatic menopausal state; Z80.3 Family history of malignant neoplasm of breast
CPT/HCPCS: 77063; 77067

== ENCOUNTER → 2022-03-13 | Outpatient (CLI) | payer MEDICARE, OTHER ==
--- NOTE | 2022-03-13 10:50 | XR ---
EXAMINATION TYPE: XR lumbar spine 2 or 3V DATE OF EXAM: 03/13/2022 CLINICAL HISTORY: Spinal stenosis. TECHNIQUE: Frontal and lateral images of the lumbar spine are obtained. COMPARISON: CT abdomen and pelvis October 19, 2018 FINDINGS: There are 5 lumbar type vertebral bodies redemonstrated. Persistent levoconvex scoliosis c entered at L2-L3 level. New posterior interpedicular rods and screws transfix the L4-L5 levels bilate rally. Persistent transitional type L6 vertebra is sacralized on the left. Stable slight grade 1 ante rolisthesis L4 on L5. Vertebral body heights are maintained. Stable mild to moderate disc space narro wing L4-L5 level. Osseous structures are demineralized. Overlying soft tissue is unremarkable. IMPRESSION: As above.
== END | disposition home or self-care (01) ==
LOC: RADXRMAIN 10:20
PROVIDERS: ATTEND Nurse Practitioner Family
DX: M51.26 Other intervertebral disc displacement, lumbar region (principal); M99.71 Connective tissue and disc stenosis of intervertebral foramina of cervical region
CPT/HCPCS: 72100

== ENCOUNTER → 2022-05-01 | Outpatient (CLI) | payer MEDICARE, OTHER ==
--- NOTE | 2022-05-02 07:38 | XR ---
EXAMINATION TYPE: XR ribs LT DATE OF EXAM: 05/01/2022 4:16 PM INDICATION: Patient age:Female; 76 years old; Reason for study: R07.82 INTERCOSTAL PAIN; PHH. COMPARISON: Chest radiograph 10/16/2020 TECHNIQUE: Frontal and oblique views of the left ribs. FINDINGS: Remote appearing left lateral fifth rib fracture. Overall, the lungs are clear. The cardia c silhouette is normal in size. The remaining osseous structures are intact. Partial visualization o f lumbar fusion hardware. Dextroscoliotic curvature of the thoracal lumbar spine. IMPRESSION RIBS: Remote appearing left lateral fifth rib fracture. Correlate with point tenderness. No displaced rib f ractures.
== END | disposition home or self-care (01) ==
LOC: RADXRMAIN 15:50
PROVIDERS: ATTEND Nurse Practitioner Family
DX: R07.82 Intercostal pain (principal); Z87.81 Personal history of (healed) traumatic fracture

== ENCOUNTER → 2022-05-26 | Outpatient (CLI) | payer MEDICARE, OTHER ==
--- NOTE | 2022-05-26 13:39 | BD ---
EXAMINATION TYPE: Axial Bone Density DATE OF EXAM: 05/26/2022 COMPARISON: NONE CLINICAL HISTORY: 76 year old Female. ICD-10 CODE: M81.0 OSTEOPOROSIS Height: 65 Weight: 137.3 FRAX RISK QUESTIONS: Alcohol (3 or more units per day): no Family History (Parent hip fracture): no Glucocorticoids (More than 3mos): no (Ex: prednisone, prednisolone, methylprednisolone, dexamethasone, and hydrocortisone). History of Fracture in Adulthood: yes Secondary Osteoporosis: 1. Type 1 Diabetes: no 2. Hyperthyroidism: no 3. Menopause before 45: yes 4. Malnutrition: no 5. Chronic liver disease: no Rheumatoid Arthritis: no Current Tobacco Use: no RISK FACTORS HISTORY OF: History of Wrist Fracture: bilateral wrist Surgery to Spine/Hip(right/left)/Wrist (right/left): lumbar fusion When: 2021/ bilateral wrist surgery with plates and screws Family History of Osteoporosis: yes Active: no Diet low in dairy products/other sources of calcium: yes Postmenopausal woman: yes Lost more than 2 inches in height since high school: yes MEDICATIONS: Additional History: EXAM MEASUREMENTS: Bone mineral densitometry was performed using the [employer] System. Bone mineral density about the R hip (g/cm2): 0.624 Bone mineral density about the L hip (g/cm2): 0.669 T Score values are as follows: -----R Neck: -3.0 -----L Neck: -2.7 -----R Total: -2.2 -----L Total: -2.6 Bone mineral density has: decreased -12.0 % since study of: 08.19.2017 FRAX%s: The graph provided illustrates a 29.0% chance for a major osteoporotic fx and a 11.0% chance for the hips probability for fx in 10 years time. IMPRESSION: Osteoporosis (T Score less than -2.5). There is increased fracture risk and therapy is usually indicated based on age. Re-Screen 1-2 years. NOTE: T-SCORE=SD OF THE YOUNG ADULT MEAN.
--- NOTE | 2022-05-28 08:21 | MM ---
Reason for Exam: Screening (asymptomatic). Last mammogram was performed 1 year(s) and 3 month(s) ago. Patient History: Menarche at age 14. First Full-Term at age 27. Postmenopausal. Other cancer, age 64. Estrogen for 13 years from age 44 until age 57. Progesterone, starting at age 44 for 13 years. 1991, Benign Core Biopsy on the left side. Maternal grandmother had breast cancer, age 75. Paternal cousin had breast cancer, age 48. Maternal aunt had breast cancer, age 75. Mother had breast cancer, age 85. Risk Values: Nata 5 year model risk: 4.1%. NCI Lifetime model risk: 9.3%. Prior Study Comparison: 09/01/2018 Bilateral Screening Mammogram, [facility]. 02/08/2020 Bilateral Screening Mammogram, [facility]. 02/20/2021 Bilateral Screening Mammogram, [facility]. Tissue Density: There are scattered fibroglandular densities. Findings: Analyzed By CAD. No suspicious groups of microcalcifications, spiculated or lobular masses, architectural distortion or other secondary signs of malignancy are mammographically apparent. Overall Assessment: Negative, BI-RAD 1 Management: Screening Mammogram of both breasts in 1 year. A negative mammogram report should not preclude additional follow up of suspicious palpable abnormalities. Patient should continue monthly self breast exam. A clinical breast exam by your physician is recommended on an annual basis and results should be correlated with mammographic findings. Electronically signed and approved by: Ronald Schwab D.O. Radiologis
== END | disposition home or self-care (01) ==
LOC: RADMAMWWP 11:53
PROVIDERS: ATTEND Internal Medicine Geriatric Medicine
DX: Z12.31 Encounter for screening mammogram for malignant neoplasm of breast (principal); M81.0 Age-related osteoporosis without current pathological fracture
CPT/HCPCS: 77063; 77067; 77080

== ENCOUNTER 2022-07-17 10:13 | Day surgery (SDC) | payer MEDICARE, OTHER ==
[2022-07-15 13:39] VITALS: BMI 22.3
[~2022-07-17 10:13] MED LIST changes: -DEXAMETHASONE SOD PHOSPHATE 10 MG/ML 1 ML VIAL IV ONE; -HYDROmorphone 0.5 MG/0.5 ML SYRINGE IVP PRN; -MIDAZOLAM (PF) 2 MG/2 ML VIAL IV PRN; -ONDANSETRON 4 MG/2 ML VIAL IVP ONE; -Pre Op ABX Message 1 EACH MISC MISCELLANE ONE
[2022-07-17 11:04] VITALS: TEMP 98
[2022-07-17] MEDS ORDERED: PROPOFOL 10 MG/ML 20 ML VIAL IV ONE (11:50)
[2022-07-17] MEDS ORDERED: LIDOCAINE 2% INJ 20 MG/ML (2 ML VIAL) ONE (11:50)
--- NOTE | 2022-07-17 12:16 | P.PCN ---
Date of Procedure: 07/17/22 Procedure(s) Performed: Brief history: Patient is a pleasant 76-year-old white female scheduled for an elective upper endoscopy as well as colonoscopy as a part of evaluation of iron deficiency anemia. She was recently noted to have a hemoglobin of 7 g/dL requiring 2 units of PRBC transfusion following her spinal surgery and some of this area. Procedure performed: Esophagogastroduodenoscopy with biopsy Colonoscopy biopsy Preoperative diagnosis: Iron deficiency anemia Anesthesia: MAC Procedure: After informed consent was obtained from the patient was brought into the endoscopy unit and IV sedation was administered by anesthesia under continuous monitoring. Initially upper endoscopy was done. The Olympus GF 160 video endoscope was inserted inserted into the mouth and esophagus intubated without any difficulty and was gradually advanced into the stomach and duodenum and carefully examined. The bulb and second part of the duodenum appeared normal. Biopsies were done from the duodenum to rule out celiac disease. The scope was then withdrawn into the stomach adequately insufflated with air and upon careful examination the antrum and mild gastritis and biopsies were done from this area. The body, cardia and fundus appeared normal. The scope was then withdrawn into the esophagus. The GE junction was located at 40 cm to the incisors. It appeared regular with no erythema erosions or ulcerations. Rest of the esophagus appeared normal. Patient tolerated the procedure well. At this time the patient continued to remain sedation. Initial digital rectal examination was normal. Olympus CF 160 video colonoscope was then inserted into the rectum and gradually advanced to the cecum without any difficulty. Careful examination was performed as the scope was gradually being withdrawn. The prep was excellent. The cecum there normal. In the ascending colon there was a 5 mm flat polyp removed by cold biopsy. Rest of the, ascending colon, transverse colon, descending colon, sigmoid colon and rectum appeared normal. Scattered sigmoid diverticulosis. Retroflexion was performed in the rectum and no lesions were noted. Patient tolerated the procedure well. Impression: 1. Upper endoscopy revealed mild antral gastritis but no evidence of esophagitis or peptic ulcer disease 2. Colonoscopy revealed a 5 mm flat ascending colon polyp status post cold biopsy and scattered sigmoid diverticulosis. Recommendations: Findings of this examination were discussed with the patient as well anya family. She was advised to follow with the biopsy results. If the biopsy result adenoma she can have a repeat colonoscopy in 5 years.
[2022-07-17 12:36] VITALS: RESP 16
[2022-07-17 12:38] VITALS: BP 105/82; PULSE 67
== END 2022-07-17 13:11 | disposition home or self-care (01) ==
LOC: ORWHC2ENDO 10:13
PROVIDERS: ATTEND Internal Medicine Gastroenterology
DX: D12.2 Benign neoplasm of ascending colon (principal); K29.50 Unspecified chronic gastritis without bleeding; D50.9 Iron deficiency anemia, unspecified; E78.5 Hyperlipidemia, unspecified; I27.20 Pulmonary hypertension, unspecified; Z98.51 Tubal ligation status; Z98.1 Arthrodesis status
CPT/HCPCS: 88305; 45380; 43239; J2704; J2001

== ENCOUNTER → 2022-08-12 | Outpatient (CLI) | payer MEDICARE, OTHER ==
[2022-08-13 02:09] LABS: African American GFR (CKD) 57.9 (60.0-200.0); Albumin 4.5 g/dL (3.8-4.9); Albumin/Globulin Ratio 1.64 (1.60-3.17); Anion Gap 10.1 mmol/L (10.00-18.00); BUN/Creat Ratio 23.85 Ratio (12.00-20.00); Calcium 9.1 mg/dL (8.7-10.3); Carbon Dioxide 27.3 mmol/L (20.0-27.5); Globulin 2.8 g/dL (1.6-3.3); Potassium 5.1 mmol/L (3.5-5.5); Total Bilirubin 0.3 mg/dL (0.30-1.20); Total Protein 7.3 g/dL (6.2-8.2)
== END | disposition home or self-care (01) ==
LOC: LABWHC1 13:52
PROVIDERS: ATTEND Internal Medicine Endocrinology, Diabetes & Metabolism
DX: M81.0 Age-related osteoporosis without current pathological fracture (principal)
CPT/HCPCS: 36415; 80053; 82306; 82523; 83970; 84443

== ENCOUNTER → 2023-02-02 | Outpatient (CLI) | payer MEDICARE, OTHER ==
--- NOTE | 2023-02-02 13:07 | FL ---
Modified barium swallow. HISTORY: Dysphagia. Modified barium swallow was performed with the department of speech pathology. The patient was prese nted with various consistencies of barium. There is no evidence for aspiration or penetration. Full report is to follow from the department of speech pathology. Impression: Normal study.
== END | disposition home or self-care (01) ==
LOC: RADFLMAIN 11:19
PROVIDERS: ATTEND Internal Medicine Geriatric Medicine
DX: R13.10 Dysphagia, unspecified (principal)
CPT/HCPCS: 74230

== ENCOUNTER → 2023-06-18 | Outpatient (CLI) | payer MEDICARE, OTHER ==
--- NOTE | 2023-06-21 07:25 | MM ---
Reason for Exam: Screening (asymptomatic). Last mammogram was performed 1 year(s) and 1 month(s) ago. Patient History: Menarche at age 14. First Full-Term at age 27. Postmenopausal. Patient has history of breast feeding. Other cancer, age 64. Estrogen for 13 years from age 44 until age 57. Progesterone, starting at age 44 for 13 years. 1991, Benign Core Biopsy on the left side. Maternal grandmother had breast cancer, age 75. Paternal cousin had breast cancer, age 48. Maternal aunt had breast cancer, age 75. Mother had breast cancer, age 85. Risk Values: Nata 5 year model risk: 4.1%. NCI Lifetime model risk: 8.7%. Prior Study Comparison: 02/08/2020 Bilateral Screening Mammogram, [facility]. 02/20/2021 Bilateral Screening Mammogram, [facility]. 05/26/2022 Bilateral MG 3D screening mammo w/cad, [facility]. Tissue Density: There are scattered fibroglandular densities. Findings: Analyzed By CAD. There is no suspicious group of microcalcifications or new suspicious mass in either breast. Overall Assessment: Negative, BI-RAD 1 Management: Screening Mammogram of both breasts in 1 year. A clinical breast exam by your physician is recommended on an annual basis and results should be correlated with mammographic findings. Note on Nata scores and lifetime risk: 1. A Nata score greater than 3% is considered moderate risk. If this is the case, consider specialist referral to assess eligibility for a risk reducing agent. If overall lifetime risk for the development of breast cancer is 20% or higher, the patient may qualify for future screening with alternating mammogram and breast MRI. Electronically signed and approved by: Balbir Rodriguez D.O.
== END | disposition home or self-care (01) ==
LOC: RADMAMWWP 15:18
PROVIDERS: ATTEND Internal Medicine Geriatric Medicine
DX: Z12.31 Encounter for screening mammogram for malignant neoplasm of breast (principal); Z78.0 Asymptomatic menopausal state; Z80.3 Family history of malignant neoplasm of breast
CPT/HCPCS: 77063; 77067

== ENCOUNTER → 2023-08-10 | Outpatient (CLI) | payer MEDICARE, OTHER ==
[2023-08-10 16:47] LABS: Partial Thromboplastin Time 26.8 sec (22.0-30.0); Prothrombin Time 10.7 sec (10.0-12.5)
[2023-08-11 02:02] LABS: HCT 37.7 % (37.2-46.3); HGB 11.8 g/dL (12.0-15.0); MCH 29.7 pg (27.0-32.0); MCHC 31.3 g/dL (32.0-37.0); Mean Platelet Volume 10.2 FL (9.5-12.2); NRBC Per 100 WBC 0 X 10*3/uL (0.00-0.01); Platelet Count 188 X 10*3/uL (140-440); RBC 3.97 X 10*6/uL (4.10-5.20); WBC 4.69 X 10*3/uL (4.50-10.00)
[2023-08-11 02:25] LABS: ALT 6 U/L (8-44); AST 22 U/L (13-35); Albumin 4.5 g/dL (3.8-4.9); Albumin/Globulin Ratio 1.55 Ratio (1.60-3.17); Alkaline Phosphatase 62 U/L (41-126); Blood Urea Nitrogen 19.3 mg/dL (9.0-27.0); Calcium 9.8 mg/dL (8.7-10.3); Carbon Dioxide 26.9 mmol/L (21.6-31.8); Chloride 102 mmol/L (96-109); Globulin 2.9 g/dL (1.6-3.3); Glucose 92 mg/dL (70-110); Potassium 4.4 mmol/L (3.5-5.5); Sodium 140 mmol/L (135-145); Total Bilirubin 0.4 mg/dL (0.3-1.2); Total Protein 7.4 g/dL (6.2-8.2)
== END | disposition home or self-care (01) ==
LOC: LABWHC1 15:29
PROVIDERS: ATTEND Emergency Medicine
DX: I36.1 Nonrheumatic tricuspid (valve) insufficiency (principal)
CPT/HCPCS: 36415; 80053; 85027; 85610; 85730

== ENCOUNTER 2023-09-19 18:23 | Emergency (ER) | payer MEDICARE, OTHER ==
--- NOTE | 2023-09-19 18:50 | ED ---
General Adult HPI <Cristofer Ford Herbie - Last Filed: 09/20/23 02:25> - General Source: patient Mode of arrival: EMS Limitations: no limitations - History of Present Illness -: minutes(s) Location: head, neck, chest, back Quality: sharp Consistency: constant Improves with: none Worsens with: movement Associated Symptoms: denies other symptoms Treatments Prior to Arrival: none <Tyree Hernandez - Last Filed: 09/20/23 04:34> - General Stated complaint: Fall Time Seen by Provider: 09/19/23 18:26 - History of Present Illness Initial comments: This patient is 77-year-old woman who presents to have evaluation after she fell and struck the back of her head. The patient stated that it was when she had gotten up and that she felt very lightheaded. When I question the patient she is not sure and states she may have passed out. The patient complains of head, neck, left rib, and low back pain. She rates the pain as severe. Pains are worse when she tries to move, better when lying still. She also complains of la ceration to the chin. EMS was called to the scene by family and transported the patient. (Tyree Hernandez) - Related Data Home Medications Medication Instructions Recorded Confirmed Aspirin 81 mg PO HS 10/20/17 07/17/22 Naproxen Sodium [Aleve] 220 mg PO BID PRN 10/20/17 07/17/22 clonazePAM [KlonoPIN] 1 mg PO HS 10/20/17 07/17/22 Acetaminophen [Tylenol Arthritis] 650 mg PO DAILY PRN 08/12/20 07/17/22 Cholecalciferol [Vitamin D3 (25 1,000 unit PO DAILY 08/12/20 07/17/22 Mcg = 1000 Iu)] PARoxetine [Paxil] 10 mg PO BID 08/12/20 07/17/22 Vitamin B Complex 1 each PO DAILY 08/12/20 07/17/22 Carbidopa-Levodopa 25-100 mg 1 each PO TID 07/15/22 07/17/22 [Sinemet 25-100] Midodrine [ProAmatine] 5 mg PO BID 07/15/22 07/17/22 Pregabalin [Lyrica] 75 mg PO BID 07/15/22 07/17/22 Previous Rx's Medication Instructions Recorded Lidocaine 5% Patch [Lidoderm] 1 patch TOPICAL DAILY PRN 5 Days 09/20/23 #5 patch Allergies Allergy/AdvReac Type Severity Reaction Status Date / Time No Known Allergies Allergy Verified 09/19/23 18:39 Review of Systems ROS Other: All systems not noted in ROS Statement are negative. <LoganCristofer Herbie - Last Filed: 09/20/23 02:25> ROS Other: All systems not noted in ROS Statement are negative. Constitutional: Denies: fever, chills, weakness Eyes: Denies: eye pain, vision change ENT: Denies: ear pain, hearing loss, epistaxis Respiratory: Denies: cough, dyspnea Cardiovascular: Reports: chest pain (Left ribs), syncope. Denies: palpitations, edema Gastrointestinal: Denies: abdominal pain, nausea, vomiting Genitourinary: Denies: dysuria, hematuria Musculoskeletal: Reports: back pain (Lumbar area, midline) Skin: Reports: other (Chin laceration). Denies: rash Neurological: Denies: headache, weakness, numbness, confusion Hematological/Lymphatic: Denies: easy bleeding <Tyree Hernandez - Last Filed: 09/20/23 04:34> ROS Statement: Those systems with pertinent positive or pertinent negative responses have been documented in the HPI. Past Medical History Past Medical History: Cancer, Hyperlipidemia, Skin Disorder Additional Past Medical History / Comment(s): states "more pronounced patent foramen ovale" tricuspid and mitral valve regurgitation, states has been hoarse, following with Dr Jackson, mild pulmonary htn, REM sleep disorder, "has small opening from stitch at thumb incision done in ", hx skin CA, varicose vein Left leg History of Any Multi-Drug Resistant Organisms: None Reported Past Surgical History: Adenoidectomy, Heart Catheterization, Orthopedic Surgery, Tonsillectomy, Tubal Ligation Additional Past Surgical History / Comment(s): rt thumb arthroplasty 06-03-17,lt thumb arthroplasty, anuja wrist ORIF, with plates and screws, pilonidal cyst, lizzy st bx, anuja cataracts,OFELIA Past Anesthesia/Blood Transfusion Reactions: Previous Problems w/ Anesthesia Additional Past Anesthesia/Blood Transfusion Reaction / Comment(s): has had trouble waking up from anesthesia Smoking Status: Former smoker - Past Family History Mother Family Medical History: Cancer Additional Family Medical History / Comment(s): breast Father Family Medical History: Cancer, Diabetes Mellitus Additional Family Medical History / Comment(s): prostate <MaryTyree - Last Filed: 09/20/23 04:34> General Exam General appearance: alert, in no apparent distress Head exam: Present: atraumatic (The patient does have contusion under the chin and then to the posterior aspect. There is marked tenderness concerning for possible skull fracture, no obvious deformity), normocephalic Eye exam: Present: normal appearance, PERRL, EOMI. Absent: scleral icterus, conjunctival injection, nystagmus ENT exam: Present: normal oropharynx, mucous membranes moist, TM's normal bilaterally, normal external ear exam Neck exam: Present: normal inspection, tenderness (There is midline tenderness near the upper cervical vertebrae), other (Patient is in cervical collar) Respiratory exam: Present: normal lung sounds bilaterally, chest wall tenderness (Marked tenderness of the left anterior ribs near the costal margin). Absent: respiratory distress, wheezes, rales, rhonchi, stridor, accessory muscle use Cardiovascular Exam: Present: regular rate, normal rhythm, normal heart sounds. Absent: systolic murmur, diastolic murmur, rubs, gallop GI/Abdominal exam: Present: soft. Absent: distended, tenderness, guarding, rebound, rigid, mass, pulsatile mass Extremities exam: Present: normal inspection, full ROM, normal capillary refill. Absent: tenderness, pedal edema, calf tenderness Back exam: Present: normal inspection, vertebral tenderness (Marked tenderness to the midline lower back). Absent: CVA tenderness (R), CVA tenderness (L) Neurological exam: Present: alert, oriented X3, CN II-XII intact. Absent: motor sensory deficit Skin exam: Present: warm, dry, normal color, other (There is an approximately 3 cm laceration inferior aspect of the chin) <MaryTyree - Last Filed: 09/20/23 04:34> Course Vital Signs 09/19/23 09/19/23 09/19/23 18:26 19:36 22:03 Temperature 98.2 F 97.9 F Pulse Rate 66 68 84 Respiratory 18 18 16 Rate Blood Pressure 122/92 148/92 134/86 O2 Sat by Pulse 100 97 100 Oximetry 09/20/23 09/20/23 01:00 02:42 Temperature 98 F Pulse Rate 64 71 Respiratory 18 18 Rate Blood Pressure 105/54 105/69 O2 Sat by Pulse 95 99 Oximetry EKG Findings - EKG Results: EKG: interpreted by ERMD, sinus rhythm, normal axis - Blocks, Cornucopia, Hypertrophy, ST Abn: QRS axis and voltage: low voltage (<0.5 MV total QRS and <1.0 MV in each precordial lead) Repolarization changes or abnormalities: Q-T interval prolongation <Tyree Hernandez - Last Filed: 09/20/23 04:34> Procedures - Laceration Laceration #1 Consent Obtained: verbal consent Indication: laceration Site: face Size (cm): 3 Description: linear Depth: simple, single layer Type of Sutures: other (Skin adhesive) Size of Sutures: other (Skin adhesive) Technique: other (Skin adhesive) Patient Tolerated Procedure: well, no complications <Tyree Hernandez - Last Filed: 09/20/23 04:34> Medical Decision Making - Lab Data Result diagrams: 09/19/23 18:53 09/19/23 18:53 <Cristofer Ford - Last Filed: 09/20/23 02:25> - Lab Data Result diagrams: 09/19/23 18:53 09/19/23 18:53 <Tyree Hernandez - Last Filed: 09/20/23 04:34> - Medical Decision Making Patient presented to me by previous shift physician, Dr. Maldonado. Briefly, patient is a 77-year-old female presents to the emergency department after she had fallen. I have sent was to follow up with pending imaging studies and to determine final disposition. CT imaging is obtained showing no acute processes. No acute traumatic processes seen on head CT, C-spine or lumbar spine. Patient having severe pain to her left lateral ribs. X-ray shows no acute processes however given her age and degree of symptoms CT of the chest was ordered. CT chest showed no fractured ribs. Patient observed in emergency department for hours. Chart review was performed. She had an echo performed in 2019 that showed no ventricular cardiomyopathy. Labs reviewed. Patient is or the emergency department for several hours. Patient reevaluated at bedside stable medical condition. Patient be discharged. (Cristofer Ford) This patient is 77-year-old woman presenting after fall with possible syncopal episode. The patient described striking her chin and then going backwards and landing on her back and posterior head and neck. She does have marked tenderness and therefore computed tomography scan brain, C-spine and lumbar spine are ordered. I interpreted the CT brain and C-spine as negative for acute bony injury and negative for acute intracranial hemorrhage. I interpreted the CT of the lumbar spine as negative for acute bony injury. There is fusion hardware that appears intact. The chest x-ray and left rib x-rays I interpreted as negative for acute bony injury and negative for pneumothorax. Was pt. sent in by a medical professional or institution (, PA, PIG FARM MANAGER, urgent ca re, hospital, or penitentiary...) When possible be specific @ -[No] Did you speak to anyone other than the patient for history (EMS, parent, family, police, friend...)? What history was obtained from this source @ -[No] Did you review nursing and triage notes (agree or disagree)? Why? @ -[I reviewed and agree with nursing and triage notes] Were old charts reviewed (outside hosp., previous admission, EMS record, old EKG, old radiological studies, urgent care reports/EKG's, penitentiary records)? Report findings @ -[No old charts were reviewed] Differential Diagnosis (chest pain, altered mental status, abdominal pain women, abdominal pain men, vaginal bleeding, weakness, fever, dyspnea, syncope, headache, dizziness, GI bleed, back pain, seizure, CVA, palpatations, mental health, musculoskeletal)? @ -[Differential Musculoskeletal Muscular strain, contusion, ligament sprain, fracture, arthritis, septic arthritis, bursitis, cellulitis, muscle spasm, nerve compression, DVT, arterial occlusion, herpes zoster, electrolyte abnormality, tumor.... This is not meant to be in all inclusive list EKG interpreted by me (3pts min.). @ -[I interpreted As above] X-rays interpreted by me (1pt min.). @ -[I interpreted as above CT interpreted by me (1pt min.). @ -[I interpreted as above U/S interpreted by me (1pt. min.). @ -[None done] What testing was considered but not performed or refused? (CT, X-rays, U/S, labs)? Why? @ -[None] What meds were considered but not given or refused? Why? @ -[None] Did you discuss the management of the patient with other professionals (prof ball i.e. , PA, PIG FARM MANAGER, lab, RT, psych nurse, case management social worker, sleeve bottom feller, teacher, transport corps officer, case work aide)? Give summary @ -[No] Was smoking cessation discussed for >3mins.? @ -[No] Was critical care preformed (if so, how long)? @ -[No] Were there social determinants of health that impacted care today? How? (Homelessness, low income, unemployed, alcoholism, drug addiction, trans portation, low edu. Level, literacy, decrease access to med. care, longterm, rehab)? @ -[No] Was there de-escalation of care discussed even if they declined (Discuss DNR or withdrawal of care, Hospice)? DNR status @ -[No] What co-morbidities impacted this encounter? (DM, HTN, Smoking, COPD, CAD, Cancer, CVA, ARF, Chemo, Hep., AIDS, mental health diagnosis, sleep apnea, morbid obesity)? @ -[None] Was patient admitted / discharged? Hospital course, mention meds given and route, prescriptions, significant lab abnormalities, going to OR and other pertinent info. @ -[Patient is 77-year-old woman presenting here by ambulance after having a ground-level fall and possible syncopal episode as well. The patient's laboratory workup unremarkable. The patient did have radiologic studies that I interpreted as above but was pending final radiology review and signed out to the oncoming physician. Undiagnosed new problem with uncertain prognosis? @ -[No] Drug Therapy requiring intensive monitoring for toxicity (Heparin, Nitro, Insulin, Cardizem)? @ -[No] Were any procedures done? @ -[No] Diagnosis/symptom? @ -Acute fall Possible syncopal episode Minor head injury Chin laceration Acute left chest wall injury Multiple contusions including chin, chest wall Acute, or Chronic, or Acute on Chronic? @ -[Acute Uncomplicated (without systemic symptoms) or Complicated (systemic symptoms)? @ -[Uncomplicated Side effects of treatment? @ -[No] Exacerbation, Progression, or Severe Exacerbation? @ -[No] Poses a threat to life or bodily function? How? (Chest pain, [place], [place], pneumonia, PE, COPD, DKA, ARF, appy, cholecystitis, CVA, Diverticulitis, Homicidal, Suicidal, threat to staff... and all critical care pts) @ -[No] (DomroyerTyree) - Lab Data Lab Results 09/19/23 09/19/23 09/19/23 Range/Units 18:53 18:53 18:54 WBC 4.1 (3.8-10.6) k/uL RBC 3.96 (3.80-5.40) m/uL Hgb 12.3 (11.4-16.0) gm/dL Hct 37.0 (34.0-46.0) % MCV 93.4 (80.0-100.0) fL MCH 31.2 (25.0-35.0) pg MCHC 33.4 (31.0-37.0) g/dL RDW 14.1 (11.5-15.5) % Plt Count 175 (150-450) k/uL MPV 8.1 Neutrophils % 51 % Lymphocytes % 38 % Monocytes % 6 % Eosinophils % 2 % Basophils % 1 % Neutrophils # 2.1 (1.3-7.7) k/uL Lymphocytes # 1.6 (1.0-4.8) k/uL Monocytes # 0.2 (0-1.0) k/uL Eosinophils # 0.1 (0-0.7) k/uL Basophils # 0.0 (0-0.2) k/uL Sodium 137 (137-145) mmol/L Potassium 4.0 (3.5-5.1) mmol/L Chloride 104 (98-107) mmol/L Carbon Dioxide 22 (22-30) mmol/L Anion Gap 11 mmol/L BUN 20 H (7-17) mg/dL Creatinine 0.92 (0.52-1.04) mg/dL Est GFR (CKD-EPI)AfAm 71 (>60 ml/min/1.73 sqM) Est GFR (CKD-EPI)NonAf 61 (>60 ml/min/1.73 sqM) Glucose 85 (74-99) mg/dL Calcium 8.8 (8.4-10.2) mg/dL Total Bilirubin 0.6 (0.2-1.3) mg/dL AST 34 (14-36) U/L ALT 7 (4-34) U/L Alkaline Phosphatase 63 (38-126) U/L Troponin I <0.012 (0.000-0.034) ng/mL Total Protein 8.0 (6.3-8.2) g/dL Albumin 4.6 (3.5-5.0) g/dL Disposition Is patient prescribed a controlled substance at d/c from ED?: No Time of Disposition: 02:26 <Cristofer Ford - Last Filed: 09/20/23 02:25> Is patient prescribed a controlled substance at d/c from ED?: No <Tyree Hernandez - Last Filed: 09/20/23 04:34> Clinical Impression: Fall, Rib contusion, Laceration, Lumbar strain Disposition: HOME SELF-CARE Condition: Fair Instructions (If sedation given, give patient instructions): Fall Prevention for Older Adults (ED), Rib Contusion (ED) Prescriptions: Lidocaine 5% Patch [Lidoderm] 1 patch TOPICAL DAILY PRN 5 Days #5 patch PRN Reason: Pain Referrals: Diego Ybarra MD [Primary Care Provider] - 1-2 days
[2023-09-19] MEDS ORDERED: DIPH,PERTUS(ACELL)TETVAC-LF 0.5 ML VIAL IM ONE (18:53)
[2023-09-19 19:04] LABS: Basophils % (A) 1 %; Eosinophils # (A) 0.1 k/uL (0-0.7); Eosinophils % (A) 2 %; HGB 12.3 gm/dL (11.4-16.0); Lymphocytes # (A) 1.6 k/uL (1.0-4.8); Lymphocytes % (A) 38 %; MCH 31.2 pg (25.0-35.0); MCHC 33.4 g/dL (31.0-37.0); MCV 93.4 fL (80.0-100.0); Mean Platelet Volume 8.1; Monocytes # (A) 0.2 k/uL (0-1.0); Monocytes % (A) 6 %; Neutrophils # (A) 2.1 k/uL (1.3-7.7); Neutrophils % (A) 51 %; Platelet Count 175 k/uL (150-450); RBC 3.96 m/uL (3.80-5.40); RDW 14.1 % (11.5-15.5); WBC 4.1 k/uL (3.8-10.6)
[2023-09-19 19:22] LABS: ALT 7 U/L (4-34); AST 34 U/L (14-36); African American GFR (CKD) 71 (>60 ml/min/1.73 sqM); Albumin 4.6 g/dL (3.5-5.0); Alkaline Phosphatase 63 U/L (38-126); Anion Gap 11 mmol/L; Blood Urea Nitrogen 20 mg/dL (7-17); Calcium 8.8 mg/dL (8.4-10.2); Carbon Dioxide 22 mmol/L (22-30); Chloride 104 mmol/L (98-107); Glucose 85 mg/dL (74-99); Non-African American GFR(CKD) 61 (>60 ml/min/1.73 sqM); Sodium 137 mmol/L (137-145); Total Bilirubin 0.6 mg/dL (0.2-1.3)
[2023-09-19] MEDS ORDERED: MORPHINE SULFATE 4 MG/ML SYRINGE IV STA (19:22)
[2023-09-19] MEDS ORDERED: TOPICAL SKIN ADHESIVE 1 EACH AMP TOPICAL ONE (20:59)
--- NOTE | 2023-09-19 21:56 | CT ---
EXAMINATION TYPE: CT brain cspine wo con CT DLP: 1248.1 mGycm, Automated exposure control for dose reduction was used. DATE OF EXAM: 09/19/2023 7:22 PM COMPARISON: None. CLINICAL INDICATION:Female, 77 years old with history of fall injury; fall, chin laceration, hit head TECHNIQUE: Brain: Multiple axial CT images of the brain were obtained without IV contrast. Cspine: Axial CT images from the skull base to the inferior aspect of T2 we obtained without intraven ous contrast. Coronal and sagittal reformatted images were also reviewed. FINDINGS: Brain: Extra-axial spaces: No abnormal extra-axial fluid collections. Ventricular system: Appear dilated in proportion to the degree of cerebral atrophy. Cerebral parenchyma: No increased attenuation to suggest acute intraparenchymal hemorrhage. The gra y-white matter interface appears maintained. Moderate to severe generalized brain atrophy. Scattere d hypoattenuating areas are seen within the cerebral white matter, nonspecific but most often seen wi chronic microvascular ischemic changes; moderate in degree. Cerebellum: No acute abnormality. Mass effect: No evidence of mass effect or midline shift. Intracranial vasculature: Atherosclerotic calcifications of the larger arteries near the skull base. Soft tissues: No acute abnormality seen. The anterior facial tissues/chin are not fully included on t his exam. Visualized orbits: Orbital contents appear grossly intact. There has likely been previous lens surg sapphire. Calvarium/osseous structures: No evidence of calvarial fracture. Paranasal sinuses and mastoid air cells: Clear. MRI is more sensitive for detecting acute processes such as infarct, and may be considered if clinica lly warranted. Cervical spine: Fracture: None seen. Osseous structures, spinal canal/neural foramina: Generalized osteopenia. Mild degenerative change of the craniocervical junction with preserved alignment. Degenerative change of the anterior C1-C2 vincent culation with small retrodental soft tissue density without significant narrowing of the upper cervic al canal. Moderate degenerative disk disease and mild/moderate facet arthrosis otherwise throughout t he cervical spine.. C2-3, mild canal stenosis. C3-4, mild/moderate canal and mild foraminal stenoses. C4-5, mild/moderate canal and mild foraminal stenoses. C5-6, mild to moderate canal and left foraminal stenosis, moderate right foraminal stenosis. C6-7, small disc marginal osteophytes cause mild narrowing of the anterior spinal canal and mild narr owing of the neural foramina. Vertebral alignment: No traumatic malalignment. Overall there is mild reversal of the normal lordosis from C2 to C6. Degenerative anterolisthesis C2 on 3 of 1.9 mm, C3 on 4 1.2 mm, C4 on 5 1.5 mm, and T 2 on T3 1.4 mm. Neck soft tissues: No acute finding.. Mild calcifications noted involving the cervical carotid arteri es. Other: Lung apices show mild scarring/senescent changes. No acute infiltrate or pneumothorax. IMPRESSION: CT head: 1. No CT evidence of an acute intracranial abnormality. 2. Atrophy and chronic microvascular ischemic white matter changes. CT cervical spine: 1. No evidence of acute cervical spine fracture or traumatic malalignment. 2. Moderate cervical spondylosis. Osteopenia.
[2023-09-19] MEDS ORDERED: CARBIDOPA-LEVODOPA ER 25-100MG 1 EACH TABLET.ER PO STA (22:32)
--- NOTE | 2023-09-19 22:35 | CT ---
EXAMINATION TYPE: CT lumbar spine wo con CT DLP: 844.5 mGycm, Automated exposure control for dose reduction was used. DATE OF EXAM: 09/19/2023 7:22 PM COMPARISON: MR lumbar spine 05/21/2023. CLINICAL INDICATION:Female, 77 years old with history of blunt trauma; PHH, fall lower back pain TECHNIQUE: Multiple axial images were obtained from the midportion of T11 through the sacroiliac lashaun nts. Soft tissue and bone windows in coronal and sagittal planes were obtained and reviewed. 3-D ref ormats of the bones were created on a separate workstation and submitted for review. Contrast used: mL of , none. Oral contrast used: none. FINDINGS: Osseous mineralization appears normal to slightly diminished. No evidence of destructive lesion. Ther e are bilateral pedicle screws and posterior fixation rods with accompanying laminectomy changes at t he L3-L4 level. Hardware appears intact and normally positioned however there is lucency along the co urse of the pedicle screws, greatest involving the right L4 screw and least involving the right L3 sc rew. The hardware appears intact. No evidence for osseous destructive process, acute fracture lucency, or vertebral body height loss. D egenerative changes are present which appear overall similar to the prior MRI. Stable 7 mm anterolist hesis L3 on L4. Visualized paraspinous soft tissues show no clearly acute abnormality. Bilateral renal hypodensities appear to correspond to T2 bright lesions on previous MRI, suggestive of cysts. IMPRESSION: 1. No evidence of acute fracture or traumatic malalignment of the lumbar spine. 2. Posterior fixation hardware spanning L3-L4. Hardware appears intact. There are however lucencies along the length of the pedicle screws, mostly on the right at L4, suggesting possibility of loosenin g or infection.
[2023-09-20] MEDS ORDERED: MORPHINE SULFATE 4 MG/ML SYRINGE IVP STA (00:08)
[2023-09-20] MEDS ORDERED: LIDOCAINE 4% PATCH TOPICAL ONE (01:08)
--- NOTE | 2023-09-20 01:54 | XR ---
EXAMINATION TYPE: XR ribs LT w pa chest xray DATE OF EXAM: 09/19/2023 9:16 PM CLINICAL INDICATION:Female, 77 years old with history of fall injury; H COMPARISON: TECHNIQUE: Frontal view chest with multiple views of the left rib cage. FINDINGS: Heart appears mildly enlarged. Partially calcified aortic knob. Lungs are clear. I see no pleural eff usion or pneumothorax. Mild/moderate degenerative changes of the spine with slight dextroscoliosis in the lower thoracic region and greater levoscoliosis in the lumbar region. Partially seen fusion hard colindres in the lower lumbar spine at L3-L4; refer to lumbar CT report for further details. No evidence of free air beneath the diaphragm. Moderate colonic stool. No acute displaced or deforming left rib fracture is identified. There are some mild rib deformities likely related to remote healed fractures. IMPRESSION: * No acute displaced or deforming left rib fracture. * No pneumothorax.
[2023-09-20 01:56] VITALS: RESP 18
--- NOTE | 2023-09-20 02:18 | CT ---
EXAM: CT Chest Without Intravenous Contrast CLINICAL HISTORY: ITS.REASON CT Reason: severe unrelenting rib pain pt brought to ER for fall with lt sided rib pain TECHNIQUE: Axial computed tomography images of the chest without intravenous contrast. CTDI is 6.5 mGy and DLP is 396.4 mGy-cm. This CT exam was performed using one or more of the following dose reduction techniques: automated exposure control, adjustment of the mA and/or kV according to patient size, and/or use of iterative reconstruction technique. COMPARISON: Chest x-ray dated 10/16/2020, CT chest dated 09/27/13, left rib x-ray 09/19/2023. FINDINGS: Lungs: Unremarkable. No mass. No consolidation. Pleural space: Unremarkable. No pneumothorax. No significant effusion. Heart: Unremarkable. No cardiomegaly. No significant pericardial effusion. No significant coronary artery calcifications. Bones/joints: Minimal chronic fracture deformities of the left fourth, fifth and sixth lateral ribs similar to the prior. Partially visualized hardware in the lumbar spine. Mild dextroscoliosis of the thoracic spine. Degenerative changes of the thoracic spine. Grade 1 anterolisthesis of T2 on T3. No dislocation. Soft tissues: Unremarkable. Vasculature: Unremarkable. No thoracic aortic aneurysm. Lymph nodes: Unremarkable. No enlarged lymph nodes. IMPRESSION: 1. No evidence of acute abnormality/fracture. 2. Left fourth-sixth minimal chronic rib deformities.
[2023-09-20 03:03] VITALS: BP 105/69; PULSE 71; TEMP 98
== END 2023-09-20 02:43 | disposition home or self-care (01) ==
LOC: EC 18:23
DX: S01.81XA Laceration without foreign body of other part of head, initial encounter (principal); S39.012A Strain of muscle, fascia and tendon of lower back, initial encounter; S20.212A Contusion of left front wall of thorax, initial encounter; Z87.891 Personal history of nicotine dependence; Z79.82 Long term (current) use of aspirin; Z23 Encounter for immunization; W18.09XA Striking against other object with subsequent fall, initial encounter
CPT/HCPCS: 36415; 93005; 80053; 84484; 85025; 71101; 72125; 72131; 70450; 90715; 99285; 96374; 96376; 90471; 12013; J2270; 71250

== ENCOUNTER 2024-02-21 20:39 | Emergency (ER) | payer MEDICARE, OTHER ==
[2024-02-21 21:06] VITALS: TEMP 97.8
--- NOTE | 2024-02-21 21:14 | ED ---
General Adult HPI - General Source: patient, RN notes reviewed Mode of arrival: ambulatory Limitations: no limitations <Roula Rivero - Last Filed: 02/21/24 21:13> <Yvon Hoskins - Last Filed: 02/21/24 23:07> - General Chief complaint: Syncope Stated complaint: Fall-R Leg Injury Time Seen by Provider: 02/21/24 21:13 - History of Present Illness Initial comments: Quick note: 78-year-old female presented to ER with a chief complaint of syncope. Patient was at the local [place] and shopping. She states she all of a sudden felt lightheaded/dizzy and had a syncopal episode. She is reporting right knee pain. She denies any chest pain or shortness of breath. Past medical history significant of Parkinson's she does occasionally take midodrine for hypotension. She denies any head injury. (Roula Rivero) - Related Data Home Medications Medication Instructions Recorded Confirmed Aspirin 81 mg PO HS 10/20/17 07/17/22 Naproxen Sodium [Aleve] 220 mg PO BID PRN 10/20/17 07/17/22 clonazePAM [KlonoPIN] 1 mg PO HS 10/20/17 07/17/22 Acetaminophen [Tylenol Arthritis] 650 mg PO DAILY PRN 08/12/20 07/17/22 Cholecalciferol [Vitamin D3 (25 1,000 unit PO DAILY 08/12/20 07/17/22 Mcg = 1000 Iu)] PARoxetine [Paxil] 10 mg PO BID 08/12/20 07/17/22 Vitamin B Complex 1 each PO DAILY 08/12/20 07/17/22 Carbidopa-Levodopa 25-100 mg 1 each PO TID 07/15/22 07/17/22 [Sinemet 25-100] Midodrine [ProAmatine] 5 mg PO BID 07/15/22 07/17/22 Pregabalin [Lyrica] 75 mg PO BID 07/15/22 07/17/22 Previous Rx's Medication Instructions Recorded Lidocaine 5% Patch [Lidoderm] 1 patch TOPICAL DAILY PRN 5 Days 09/20/23 #5 patch Allergies Allergy/AdvReac Type Severity Reaction Status Date / Time No Known Allergies Allergy Verified 02/21/24 21:06 Review of Systems ROS Other: All systems not noted in ROS Statement are negative. <Roula Rivero - Last Filed: 02/21/24 21:13> ROS Other: All systems not noted in ROS Statement are negative. <Yvon Hoskins - Last Filed: 02/21/24 23:07> ROS Statement: Those systems with pertinent positive or pertinent negative responses have been documented in the HPI. Past Medical History Past Medical History: Cancer, Hyperlipidemia, Skin Disorder Additional Past Medical History / Comment(s): states "more pronounced patent foramen ovale" tricuspid and mitral valve regurgitation, states has been hoarse, following with Dr Jackson, mild pulmonary htn, REM sleep disorder, "has small opening from stitch at thumb incision done in ", hx skin CA, varicose vein Left leg History of Any Multi-Drug Resistant Organisms: None Reported Past Surgical History: Adenoidectomy, Heart Catheterization, Orthopedic Surgery, Tonsillectomy, Tubal Ligation Additional Past Surgical History / Comment(s): rt thumb arthroplasty 06-03-17,lt thumb arthroplasty, anjua wrist ORIF, with plates and screws, pilonidal cyst, breast bx, anuja cataracts,OFELIA Past Anesthesia/Blood Transfusion Reactions: Previous Problems w/ Anesthesia Additional Past Anesthesia/Blood Transfusion Reaction / Comment(s): has had trouble waking up from anesthesia Past Psychological History: No Psychological Hx Reported Smoking Status: Former smoker Past Alcohol Use History: None Reported Past Drug Use History: None Reported - Past Family History Mother Family Medical History: Cancer Additional Family Medical History / Comment(s): breast Father Family Medical History: Cancer, Diabetes Mellitus Additional Family Medical History / Comment(s): prostate <Roula Rivero - Last Filed: 02/21/24 21:13> General Exam Limitations: no limitations <Roula Rivero - Last Filed: 02/21/24 21:13> - General Exam Comments Initial Comments: Visual Physical Exam Vital signs reviewed General: Well-appearing, nontoxic, no acute distress. Head: Normocephalic, atraumatic Eyes: PERRLA, EOMI ENT: Airway patent Chest: Nonlabored breathing Skin: No visual rash, normal skin tone Neuro: Alert and oriented 3 Musculoskeletal: No gross abnormalities (Roula Rivero) Course Vital Signs 02/21/24 20:59 Temperature 97.8 F Pulse Rate 70 Respiratory 18 Rate Blood Pressure 82/57 O2 Sat by Pulse 99 Oximetry Medical Decision Making <Roula Rivero - Last Filed: 02/21/24 21:13> - Lab Data Result diagrams: 02/21/24 21:14 02/21/24 21:14 <Yvon Hoskins - Last Filed: 02/21/24 23:07> - Medical Decision Making I performed the quick note portion of this chart. Electronically signed by Roula Rivero PA-C (Roula Rivero) - Lab Data Lab Results 02/21/24 02/21/24 02/21/24 Range/Units 21:14 21:14 21:14 WBC 4.3 (3.8-10.6) k/uL RBC 3.51 L (3.80-5.40) m/uL Hgb 10.7 L (11.4-16.0) gm/dL Hct 33.8 L (34.0-46.0) % MCV 96.3 (80.0-100.0) fL MCH 30.4 (25.0-35.0) pg MCHC 31.5 (31.0-37.0) g/dL RDW 14.5 (11.5-15.5) % Plt Count 176 (150-450) k/uL MPV 8.3 Neutrophils % 53 % Lymphocytes % 35 % Monocytes % 5 % Eosinophils % 3 % Basophils % 1 % Neutrophils # 2.3 (1.3-7.7) k/uL Lymphocytes # 1.5 (1.0-4.8) k/uL Monocytes # 0.2 (0-1.0) k/uL Eosinophils # 0.1 (0-0.7) k/uL Basophils # 0.0 (0-0.2) k/uL PT 10.8 (10.0-12.5) sec INR 1.0 (<1.2) APTT 24.1 (22.0-30.0) sec Sodium 134 L (137-145) mmol/L Potassium 4.4 (3.5-5.1) mmol/L Chloride 102 (98-107) mmol/L Carbon Dioxide 24 (22-30) mmol/L Anion Gap 8 mmol/L BUN 24 H (7-17) mg/dL Creatinine 1.10 H (0.52-1.04) mg/dL Est GFR (CKD-EPI)AfAm 56 (>60 ml/min/1.73 sqM) Est GFR (CKD-EPI)NonAf 49 (>60 ml/min/1.73 sqM) Glucose 103 H (74-99) mg/dL Calcium 9.2 (8.4-10.2) mg/dL Total Bilirubin 0.5 (0.2-1.3) mg/dL AST 24 (14-36) U/L ALT <6 (4-34) U/L Alkaline Phosphatase 50 (38-126) U/L Troponin I (0.000-0.034) ng/mL Total Protein 7.2 (6.3-8.2) g/dL Albumin 4.4 (3.5-5.0) g/dL 02/21/24 Range/Units 21:14 WBC (3.8-10.6) k/uL RBC (3.80-5.40) m/uL Hgb (11.4-16.0) gm/dL Hct (34.0-46.0) % MCV (80.0-100.0) fL MCH (25.0-35.0) pg MCHC (31.0-37.0) g/dL RDW (11.5-15.5) % Plt Count (150-450) k/uL MPV Neutrophils % % Lymphocytes % % Monocytes % % Eosinophils % % Basophils % % Neutrophils # (1.3-7.7) k/uL Lymphocytes # (1.0-4.8) k/uL Monocytes # (0-1.0) k/uL Eosinophils # (0-0.7) k/uL Basophils # (0-0.2) k/uL PT (10.0-12.5) sec INR (<1.2) APTT (22.0-30.0) sec Sodium (137-145) mmol/L Potassium (3.5-5.1) mmol/L Chloride (98-107) mmol/L Carbon Dioxide (22-30) mmol/L Anion Gap mmol/L BUN (7-17) mg/dL Creatinine (0.52-1.04) mg/dL Est GFR (CKD-EPI)AfAm (>60 ml/min/1.73 sqM) Est GFR (CKD-EPI)NonAf (>60 ml/min/1.73 sqM) Glucose (74-99) mg/dL Calcium (8.4-10.2) mg/dL Total Bilirubin (0.2-1.3) mg/dL AST (14-36) U/L ALT (4-34) U/L Alkaline Phosphatase (38-126) U/L Troponin I <0.012 (0.000-0.034) ng/mL Total Protein (6.3-8.2) g/dL Albumin (3.5-5.0) g/dL Disposition <Roula Rivero - Last Filed: 02/21/24 21:13> Is patient prescribed a controlled substance at d/c from ED?: No <Yvon Hoskins - Last Filed: 02/21/24 23:07> Clinical Impression: Vasovagal syncope, Syncope, Right knee pain Disposition: HOME SELF-CARE Condition: Good Instructions (If sedation given, give patient instructions): Syncope (ED) Referrals: Diego Ybarra MD [Primary Care Provider] - 1-2 days
[2024-02-21 21:33] LABS: Basophils % (A) 1 %; Eosinophils # (A) 0.1 k/uL (0-0.7); Eosinophils % (A) 3 %; HCT 33.8 % (34.0-46.0); HGB 10.7 gm/dL (11.4-16.0); Lymphocytes # (A) 1.5 k/uL (1.0-4.8); Lymphocytes % (A) 35 %; MCH 30.4 pg (25.0-35.0); MCHC 31.5 g/dL (31.0-37.0); MCV 96.3 fL (80.0-100.0); Mean Platelet Volume 8.3; Monocytes # (A) 0.2 k/uL (0-1.0); Monocytes % (A) 5 %; Neutrophils # (A) 2.3 k/uL (1.3-7.7); Neutrophils % (A) 53 %; Platelet Count 176 k/uL (150-450); RBC 3.51 m/uL (3.80-5.40); RDW 14.5 % (11.5-15.5); WBC 4.3 k/uL (3.8-10.6)
[2024-02-21 21:42] LABS: ALT <6 U/L (4-34); AST 24 U/L (14-36); African American GFR (CKD) 56 (>60 ml/min/1.73 sqM); Albumin 4.4 g/dL (3.5-5.0); Alkaline Phosphatase 50 U/L (38-126); Anion Gap 8 mmol/L; Blood Urea Nitrogen 24 mg/dL (7-17); Calcium 9.2 mg/dL (8.4-10.2); Carbon Dioxide 24 mmol/L (22-30); Chloride 102 mmol/L (98-107); Glucose 103 mg/dL (74-99); Non-African American GFR(CKD) 49 (>60 ml/min/1.73 sqM); Partial Thromboplastin Time 24.1 sec (22.0-30.0); Potassium 4.4 mmol/L (3.5-5.1); Prothrombin Time 10.8 sec (10.0-12.5); Sodium 134 mmol/L (137-145); Total Bilirubin 0.5 mg/dL (0.2-1.3); Total Protein 7.2 g/dL (6.3-8.2)
--- NOTE | 2024-02-21 21:57 | XR ---
EXAMINATION TYPE: XR knee complete RT DATE OF EXAM: 02/21/2024 9:44 PM CLINICAL INDICATION:Female, 78 years old with history of pain; [facility] COMPARISON: None. TECHNIQUE: XR knee complete RT; examined in Frontal, lateral and oblique projections. FINDINGS: No evidence of any acute osseous pathology, soft tissue swelling, or joint effusion is no stephan. Tricompartmental osteophyte formation involving the femoral condyles, tibial plateau and patella . Mild joint space narrowing. IMPRESSION: 1. No acute osseous pathology. 2. Mild tricompartmental osteoarthritic changes.
--- NOTE | 2024-02-21 21:58 | XR ---
EXAMINATION TYPE: XR chest 2V DATE OF EXAM: 02/21/2024 9:44 PM CLINICAL INDICATION:Female, 78 years old with history of syncope; COMPARISON: Chest radiographs from 09/19/2023 TECHNIQUE: XR chest 2V Frontal and lateral views of the chest. FINDINGS: Lungs/Pleura: There is flattening of the diaphragm with increased lucency of the lungs. No evidence o f pneumothorax, pleural effusion or focal consolidation. Pulmonary vascularity: Unremarkable. Heart/mediastinum: Cardiomediastinal silhouette is unremarkable. Musculoskeletal: No acute osseous pathology. IMPRESSION: 1. No acute cardiopulmonary disease process. 2. COPD changes.
[2024-02-21] MEDS: KETOROLAC 15 MG/ML 1 ML VIAL IVP STA (23:09)
[2024-02-21 23:15] VITALS: BP 97/56; PULSE 64; RESP 17
== END 2024-02-21 23:34 | disposition home or self-care (01) ==
LOC: EC 20:39
DX: M25.561 Pain in right knee (principal); R55 Syncope and collapse; Z87.891 Personal history of nicotine dependence
CPT/HCPCS: 36415; 93005; 80053; 84484; 85025; 85610; 85730; 73562; 71046; 99284; 96374; J1885

== ENCOUNTER 2024-07-06 20:58 | Inpatient (IN) | payer MEDICARE, OTHER ==
[2024-07-06 21:57] LABS: Basophils % (A) 1 %; Eosinophils # (A) 0.1 k/uL (0-0.7); Eosinophils % (A) 2 %; HCT 34.9 % (34.0-46.0); HGB 11.2 gm/dL (11.4-16.0); Hypochromasia Slight; Lymphocytes # (A) 1.3 k/uL (1.0-4.8); Lymphocytes % (A) 27 %; MCH 30.7 pg (25.0-35.0); MCHC 32.2 g/dL (31.0-37.0); MCV 95.4 fL (80.0-100.0); Mean Platelet Volume 7.4; Monocytes # (A) 0.3 k/uL (0-1.0); Monocytes % (A) 6 %; Neutrophils % (A) 62 %; Platelet Count 182 k/uL (150-450); RBC 3.66 m/uL (3.80-5.40); RDW 14.7 % (11.5-15.5); WBC 4.8 k/uL (3.8-10.6)
[2024-07-06] MEDS: ACETAMINOPHEN TAB 500 MG TAB PO STA (21:59)
[2024-07-06] MEDS: SODIUM CHLORIDE 0.9% 500 ML 500 ML IV STA (21:59)
[2024-07-06 22:13] LABS: Partial Thromboplastin Time 27.9 sec (22.0-30.0); Prothrombin Time 11.1 sec (10.0-12.5)
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
[2024-07-06 22:19] LABS: ALT 8 U/L (4-34); AST 29 U/L (14-36); African American GFR (CKD) 51 (>60 ml/min/1.73 sqM); Albumin 4.6 g/dL (3.5-5.0); Alkaline Phosphatase 57 U/L (38-126); Anion Gap 10 mmol/L; Blood Urea Nitrogen 26 mg/dL (7-17); Calcium 8.9 mg/dL (8.4-10.2); Carbon Dioxide 20 mmol/L (22-30); Chloride 107 mmol/L (98-107); Glucose 86 mg/dL (74-99); Magnesium 2.4 mg/dL (1.6-2.3); Non-African American GFR(CKD) 44 (>60 ml/min/1.73 sqM); Potassium 4.3 mmol/L (3.5-5.1); Sodium 137 mmol/L (137-145); Total Bilirubin 0.5 mg/dL (0.2-1.3); Total Protein 7.7 g/dL (6.3-8.2)
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
[2024-07-06 23:22] LABS: Appearance,Urine Clear (Clear); Bilirubin,Urine Negative (Negative); Blood,Urine Negative (Negative); Color,Urine Colorless; Glucose,Urine (UA) Negative (Negative); Ketones,Urine Negative (Negative); Leukocyte Esterase,Urine Negative (Negative); Nitrite,Urine Negative (Negative); PH, Urine 5.5 (5.0-8.0); Protein,Urine Negative (Negative); Specific Gravity,Urine 1.008 (1.001-1.035); Urobilinogen,Urine <2.0 mg/dL (<2.0)
[2024-07-06] MEDS: SODIUM CHLORIDE 0.9% 500 ML 500 ML IV ONE (23:22)
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
[2024-07-06] MEDS: MIDODRINE 5 MG TAB PO ONE (23:40)
[2024-07-07] MEDS ORDERED: ALPRAZolam 0.25 MG TAB PO PRN (00:09)
[2024-07-07] MEDS ORDERED: NALOXONE 0.4 MG/ML 1 ML VIAL IV PRN (00:09)
[2024-07-07] MEDS ORDERED: bisacodyL 5 MG TABLET.DR PO PRN (00:09)
[2024-07-07] MEDS: KETOROLAC 15 MG/ML 1 ML VIAL IVP STA (00:18)
[2024-07-07] MEDS: LIDOCAINE 4% PATCH TOPICAL ONE (00:19)
[2024-07-07] MEDS: clonazePAM 1 MG TAB PO SCH (01:02)
[2024-07-07] MEDS: CARBIDOPA-LEVODOPA 25-100 MG 1 EACH TAB PO SCH ×2 (01:02→08:14)
[2024-07-07] MEDS: ASPIRIN 81 MG PO SCH (01:02)
[2024-07-07] MEDS: MIDODRINE 5 MG TAB PO SCH (08:10)
[2024-07-07] MEDS: CARBIDOPA-LEVODOPA ER 25-100MG 1 EACH TABLET.ER PO SCH (08:11)
[2024-07-07] MEDS: PARoxetine 10 MG TAB PO SCH (08:14)
[2024-07-07] MEDS ORDERED: LIDOCAINE 4% PATCH TOPICAL PRN (09:00)
[2024-07-07] MEDS ORDERED: CARBIDOPA-LEVODOPA 25-100 MG 1 EACH TAB PO SCH (09:00)
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
[2024-07-07] MEDS: FAMOTIDINE 20 MG TAB PO SCH (09:57)
[2024-07-07] MEDS: CHOLECALCIFEROL 25 MCG (1000 IU) TABLET PO SCH (09:57)
[2024-07-07] MEDS: PREGABALIN 75 MG CAP PO SCH (09:57)
--- NOTE | 2024-07-07 12:06 | CA ---
Transthoracic Echo Report Name: Jaz Ag Age: 78 Gender: F : 1945 Exam Date: 07/07/2024 09:19 Exam Location: [facility] Ht (in): 65 Wt (lb): 145 Ordering Physician: Miguelito Venegas MD ([id number]) Attending/Referring Phys: Theo ARIAS Lead Security Officer aMry Gomez RDCS Procedure CPT: Indications: Sternal fracture Cardiac Hx: Technical Quality: Contrast 1: Total Dose (mL): Contrast 2: Total Dose (mL): MEASUREMENTS (Male / Female) Normal Values 2D ECHO LV Diastolic Diameter PLAX 3.5 cm 4.2 - 5.9 / 3.9 - 5.3 cm LV Systolic Diameter PLAX 2.7 cm IVS Diastolic Thickness 0.8 cm 0.6 - 1.0 / 0.6 - 0.9 cm LVPW Diastolic Thickness 0.9 cm 0.6 - 1.0 / 0.6 - 0.9 cm LV Relative Wall Thickness 0.5 RV Internal Dim ED PLAX 3.5 cm LA Systolic Diameter LX 3.6 cm 3.0 - 4.0 / 2.7 - 3.8 cm LV Diastolic Volume MOD BP 61.7 cm??? 67 - 155 / 56 - 104 cm??? LV Systolic Volume MOD BP 29.5 cm??? 22 - 58 / 19 - 49 cm??? LV Ejection Fraction MOD BP 52.3 % >= 55 % LV Diastolic Volume MOD 4C 57.5 cm??? LV Systolic Volume MOD 4C 22.1 cm??? LV Ejection Fraction MOD 4C 61.6 % LV Diastolic Length 4C 6.7 cm LV Systolic Length 4C 5.2 cm LV Diastolic Volume MOD 2C 64.6 cm??? LV Systolic Volume MOD 2C 36.1 cm??? LV Ejection Fraction MOD 2C 44.2 % LV Diastolic Length 2C 6.9 cm LV Systolic Length 2C 5.7 cm M-MODE Aortic Root Diameter MM 2.5 cm LA Systolic Diameter MM 2.1 cm LA Ao Ratio MM 0.8 DOPPLER AV Peak Velocity 153.7 cm/s AV Peak Gradient 9.5 mmHg Mitral E Point Velocity 69.7 cm/s Mitral A Point Velocity 85.8 cm/s Mitral E to A Ratio 0.8 MV Deceleration Time 254.8 ms MV E' Velocity 10.2 cm/s Mitral E to MV E' Ratio 6.8 TR Peak Velocity 328.7 cm/s TR Peak Gradient 43.2 mmHg Right Ventricular Systolic Press 53.3 mmHg FINDINGS Left Ventricle Left ventricular ejection fraction is estimated at 55-60 %. Small left ventricular cavity. Left ventricular wall thickness normal. Normal left ventricular wall motion. Right Ventricle Moderate right ventricular dilatation. Moderate pulmonary hypertension. Right ventricular systolic pressure estimated at 53 mm hg. Right Atrium Mild right atrial dilatation. No right atrial thrombus or mass seen. Left Atrium Normal left atrial size. No left atrial thrombus or mass present. Mitral Valve Structurally normal mitral valve. No evidence for mitral valve prolapse. No mitral stenosis. Trace to mild mitral regurgitation. Aortic Valve Trileaflet aortic valve. No aortic valve stenosis or regurgitation. Tricuspid Valve Structurally normal tricuspid valve. Severe tricuspid regurgitation. Pulmonic Valve Structurally normal pulmonic valve. Mild pulmonic regurgitation. Pericardium No pericardial or pleural effusion. Aorta Normal size aortic root and proximal ascending aorta. CONCLUSIONS Normal LV systolic function Dilated right ventricle with moderate pulmonary hypertension Severe tricuspid regurgitation Mild mitral regurgitation Previewed by: Dr. Miguelito Venegas MD (Electronically Signed) Final Date: 07 July 2024 12:05
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
[2024-07-07] MEDS ORDERED: PANTOPRAZOLE 40 MG TABLET PO SCH (14:00)
[2024-07-07] MEDS: polyethylene glycoL 3350 17 GM POWD.PACK PO SCH ×2 (14:22→20:42)
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
[2024-07-07] MEDS: KETOROLAC 15 MG/ML 1 ML VIAL IVP SCH (16:57)
[2024-07-07] MEDS: DOCUSATE 100 MG CAP PO SCH (20:43)
[2024-07-07] MEDS: HEPARIN SODIUM,PORCINE 5,000 UNIT/ML 1 ML VIAL SQ SCH (20:49)
[2024-07-08 04:57] LABS: Glucose,Whole Blood 91 mg/dL (70-110)
[2024-07-08 06:59] LABS: HCT 33.3 % (34.0-46.0); HGB 10.4 gm/dL (11.4-16.0); Hypochromasia Slight; MCH 30.1 pg (25.0-35.0); MCHC 31.1 g/dL (31.0-37.0); MCV 96.8 fL (80.0-100.0); Mean Platelet Volume 7.8; Platelet Count 147 k/uL (150-450); RBC 3.44 m/uL (3.80-5.40); RDW 15.1 % (11.5-15.5); WBC 3.4 k/uL (3.8-10.6)
[2024-07-08 07:11] LABS: African American GFR (CKD) 85 (>60 ml/min/1.73 sqM); Amylase 43 U/L (30-110); Anion Gap 9 mmol/L; Blood Urea Nitrogen 23 mg/dL (7-17); Calcium 8.5 mg/dL (8.4-10.2); Carbon Dioxide 23 mmol/L (22-30); Chloride 106 mmol/L (98-107); Glucose 83 mg/dL (74-99); Lipase 112 U/L (23-300); Non-African American GFR(CKD) 74 (>60 ml/min/1.73 sqM); Potassium 4.5 mmol/L (3.5-5.1); Sodium 138 mmol/L (137-145)
[2024-07-08] MEDS: PRAVASTATIN SODIUM 20 MG TAB PO SCH (08:25)
[2024-07-08] MEDS: PANTOPRAZOLE 40 MG TABLET PO SCH (08:25)
[2024-07-08] MEDS: LIDOCAINE 4% PATCH TOPICAL SCH (08:25)
[2024-07-08] MEDS: CALCIUM CARBONATE 500 MG CHEWABLE PO SCH (08:25)
[2024-07-08] MEDS: FAMOTIDINE 20 MG TAB PO SCH (08:25)
[2024-07-08] MEDS ORDERED: CHOLECALCIFEROL 25 MCG (1000 IU) TABLET PO SCH (09:00)
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
[2024-07-08] MEDS: ACETAMINOPHEN TAB 325 MG TAB PO PRN (13:40)
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
--- NOTE | 2024-07-08 18:51 | US ---
EXAMINATION TYPE: US carotid duplex BILAT DATE OF EXAM: 07/08/2024 COMPARISON: US 2020 CLINICAL INDICATION: Female, 78 years old with history of syncope; Syncope. Hx prior smoker. Additional History: R55 Syncope TECHNIQUE: Grayscale, color Doppler and spectral Doppler evaluation of the bilateral carotid systems and vertebral arteries. Indirect Doppler criteria was utilized. FINDINGS: EXAM MEASUREMENTS: RIGHT: Peak Systolic Velocity (PSV) cm/sec ----- Right CCA: 52.3 ----- Right ICA: 260.9 ----- Right ECA: 44.9 ICA/CCA ratio: 5.0 RIGHT: End Diastole cm/sec ----- Right CCA: 15.6 ----- Right ICA: 71.4 ----- Right ECA: 0.0 LEFT: Peak Systolic Velocity (PSV) cm/sec ----- Left CCA: 77.9 ----- Left ICA: 89.7 ----- Left ECA: 38.9 ICA/CCA ratio: 1.2 LEFT: End Diastole cm/sec ----- Left CCA: 23.0 ----- Left ICA: 27.0 ----- Left ECA: 6.0 VERTEBRALS (direction of flow): Right Vertebral: Antegrade Left Vertebral: Antegrade Rhythm: Normal VP INFORMATION TECHNOLOGY NOTES: Intimal thickening seen bilateral carotid arteries. *Right ICA appears tortuous wi th elevated velocities. ICA/CCA ratio on the right was 5.0 Color Doppler imaging shows patency with blood flow throughout the carotid artery. IMPRESSION: 1. Elevated peak systolic velocity in the right ICA and ICA/CCA ratio of 5.0 suggesting greater than 70% stenosis. 2. No evidence of hemodynamically significant stenosis in the left carotid arteries. Criteria for Assigning % of Stenosis / Diameter reduction (Estimation based on the indirect measurements of the internal carotid artery velocities (ICA PSV). 1. Normal (no stenosis)=ICA PSV < 125 cm/s: ratio < 2.0: ICA EDV<40 cm/s. 2. Less than 50% stenosis=ICA PSV < 125 cm/s: ratio < 2.0: ICA EDV<40 cm/s. 3. 50 to 69% stenosis=ICA PSV of 125 to 230 cm/s: ration 2.0 ? 4.0: ICA EDV 40-100 cm/s. 4. Greater than 70% stenosis to near occlusion= ICA PSV > 230 cm/s: ratio > 4.0: ICA EDV > 100 cm/s. 5. Near occlusion= ICA PSV velocities may be low or undetectable: variable ratio and ICA EDV. 6. Total occlusion=unable to detect flow. [facility], Workstation: [facility], 07/08/2024 6:48 PM
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
[2024-07-09] MEDS: ASPIRIN 81 MG PO SCH (17:16)
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
--- NOTE | 2024-07-10 12:22 | CT ---
EXAMINATION TYPE: CT angio head neck CT DLP: 398.3 mGycm, Automated exposure control for dose reduction was used. DATE OF EXAM: 07/10/2024 12:06 PM COMPARISON: Carotid ultrasound 07/08/2024, 10/16/2020, CT brain C-spine 07/06/2024. CLINICAL INDICATION:Female, 78 years old with history of Right ICA stenosis per carotid duplex; PHH, Right ICA stenosis per carotid duplex TECHNIQUE: Axially acquired helical CT angiogram of the head and neck was obtained with contrast util izing 65 cc of Isovue-370 administered intravenously. Axial images are supplemented with 3D reconstru ctions which were post-processed at an independent workstation. NASCET criteria used. FINDINGS: CTA HEAD: No evidence of acute intracranial hemorrhage, mass effect, or midline shift. The ventricles, sulci, a nd cisterns are unremarkable. The visualized portions of the internal carotid arteries, middle cerebral arteries, anterior cerebral arteries, and posterior cerebral arteries are patent. origin of the right MANAGER OF CONSTRUCTION. The basilar and vertebral arteries are patent. CTA NECK: Right Carotid System: The common carotid artery and external carotid artery are patent. The carotid bifurcation demonstrate s no evidence of hemodynamically significant stenosis. The remaining portions of the internal carotid artery demonstrate normal size without significant narrowing. Left Carotid System: The common carotid artery and external carotid artery are patent. The carotid bifurcation demonstrate s no evidence of hemodynamically significant stenosis. The remaining portions of the internal carotid artery demonstrate normal size without significant narrowing. Vertebral arteries are patent without evidence hemodynamically significant stenosis. Left vertebral a rtery is dominant. There is a three-vessel aortic arch. The origins of the great vessels are patent. Mild narrowing at t he origin of the left subclavian artery secondary to calcified and noncalcified plaque. Minimal biapical pleural parenchymal scarring. Mild centrilobular emphysematous changes. Multilevel d egenerative disc disease. Degenerative mild retrolisthesis of C3 on C4 and C4 on C5. Grade 1 anteroli sthesis of T2 on T3. IMPRESSION: 1. No evidence of dissection of the cervical internal carotid arteries or vertebral arteries or any e vidence of significant stenosis at the carotid bifurcations. No stenosis corresponding to carotid ult rasound finding. 2. No evidence of high-grade stenosis or intracranial aneurysm. [facility], , 07/10/2024 12:20 PM
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
[2024-07-10] MEDS: SODIUM CHLORIDE 0.9% 1,000 ML IV SCH (14:31)
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
[2024-07-11] MEDS: SODIUM CHLORIDE 0.9% 250 ML IV ONE (07:20)
[2024-07-11] MEDS: fentaNYL (PF) 50 MCG/ML 2 ML AMP IVP ONE (07:24)
[2024-07-11] MEDS: MIDAZOLAM 2 MG/2 ML VIAL IVP ONE (07:24)
[2024-07-11] MEDS: LIDOCAINE 1% INJ 10MG/ML (20 ML MDV) SQ ONE (07:25)
--- NOTE | 2024-07-11 07:32 | P.PCN ---
Description of Procedure: Procedure: Insertion of Linq loop recorder Indication: Syncope CONSENT:I have discussed the risks, benefits and alternative therapies for the above-mentioned procedure. The patient has indicated understanding and acceptance of the risks and procedures discussed. PROCEDURE: Patient was brought to the catheterization lab in a fasting state. Patient was prepped and draped in the usual fashion. 1% lidocaine was used to anesthetize the area of the left third intercostal space. Using the loop recorder incision device, a small 0.5 cm incision was made in the left 3rd intercostal space. Next the Linq loop recorder was deployed in the 3rd intercostal space subcutaneously using the insertion tool. Thresholds were checked and were appropriate. Next the incision was closed using Dermabond. Steristrips were placed over the incision and the procedure was completed. The patient tolerated the procedure well. The patient was transported to the post cath holding area in stable condition. Linq loop recorder serial number: [id number]
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
[2024-07-11 13:51] VITALS: BP 148/84; PULSE 65; RESP 15; TEMP 97.7
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
--- NOTE | 2024-07-12 01:11 | EEG ---
DATE OF SERVICE: 07/11/2024 ELECTROENCEPHALOGRAM REPORT PREAMBLE: This is a 78-year-old female with recurrent syncopal episodes. Lately, patient has had no warning signs before syncope. This study was performed to rule out any seizure activity. EEG FINDINGS: This is a 21-channel digital EEG recorded with video component, utilizing 10/20 international system with referential and bipolar montages. Background consists of well developed, well regulated, moderate to high amplitude activity in 8 hertz alpha. Background is posterior dominant and reactive to eye opening and closing. Photic driving response was not clearly seen. Different stages of sleep were not seen. No focal or generalized epileptiform activity was seen. IMPRESSION: This is a normal awake EEG. No focal, lateralized, or epileptiform activity was seen. [id number] / IJN: [id number] / MTDD
== END 2024-07-11 18:13 | disposition home health service (06) | DRG 261 ==
LOC: EC 20:58 → 6NMEDSUR 07-07 00:13 → 3SCARD 07-07 19:59 → OBSVTOIN 07-10 09:00 → 5NMEDONC 07-11 01:10
PROVIDERS: ADMIT Hospitalist; ATTEND Hospitalist
PROC: 0JH632Z Insertion of Monitoring Device into Chest Subcutaneous Tissue and Fascia, Percutaneous Approach (ICD-10-PCS; principal; 2024-07-11 10:00)
DX: I95.1 Orthostatic hypotension (principal); S22.089A Unspecified fracture of T11-T12 vertebra, initial encounter for closed fracture; S22.20XA Unspecified fracture of sternum, initial encounter for closed fracture; E78.5 Hyperlipidemia, unspecified; G47.52 REM sleep behavior disorder; I08.1 Rheumatic disorders of both mitral and tricuspid valves; I65.21 Occlusion and stenosis of right carotid artery; G89.29 Other chronic pain; G20.B1 Parkinson's disease with dyskinesia, without mention of fluctuations; G90.9 Disorder of the autonomic nervous system, unspecified; V47.0XXA Car driver injured in collision with fixed or stationary object in nontraffic accident, initial encounter; Y92.008 Other place in unspecified non-institutional (private) residence as the place of occurrence of the external cause; K59.00 Constipation, unspecified; I27.20 Pulmonary hypertension, unspecified; M19.90 Unspecified osteoarthritis, unspecified site; M43.16 Spondylolisthesis, lumbar region; Z79.82 Long term (current) use of aspirin; Z79.899 Other long term (current) drug therapy; Z85.828 Personal history of other malignant neoplasm of skin; Z87.891 Personal history of nicotine dependence; Z91.81 History of falling; Z98.1 Arthrodesis status
CPT/HCPCS: 33285; 36415; 70450; 70496; 70498; 71045; 71260; 72125; 74177; 80048; 80053; 81003; 82150; 83690; 83735; 84484; 85025; 85027; 85610; 85730; 93005; 93306; 93880; 95816; 96361; 96372; 96374; 96375; 96376; 99285

== ENCOUNTER → 2025-03-06 | Outpatient (CLI) | payer MEDICARE, OTHER ==
--- NOTE | 2025-03-06 16:32 | XR ---
EXAMINATION TYPE: XR abdomen 1V DATE OF EXAM: 03/06/2025 4:02 PM COMPARISON: None CLINICAL INDICATION: Female, 79 years old with history of R10.84 GENERALIZED ABDOMINAL PAIN; PHH TECHNIQUE: One radiographic view of the abdomen was obtained. FINDINGS: The bowel gas pattern is nonspecific without dilated loops of small or large bowel. . Fecal material and gas are demonstrated throughout the colon and rectum. There is no evidence for organome freddy or pneumoperitoneum. No evidence of fracture. Multilevel degeneration changes spine with osteop hyte formation and disc space narrowing. Is mild scoliosis changes of the spine. Mild degeneration ch anges of the hips with osteophyte information joint space narrowing. No abnormal calcifications are present. Fixation hardware L4-L5 appears intact. IMPRESSION: Nonspecific bowel gas pattern without radiographic evidence for acute process. [facility], , 03/06/2025 4:29 PM
--- NOTE | 2025-03-06 16:32 | XR ---
EXAMINATION TYPE: XR pelvis AP view DATE OF EXAM: 03/06/2025 4:02 PM COMPARISON: Same day radiograph CLINICAL INDICATION: Female, 79 years old with history of R10.84 GENERALIZED ABDOMINAL PAIN; pain PH H TECHNIQUE: XR pelvis AP view, examined in a single projection. FINDINGS: There is no evidence of fracture or dislocation. There is no soft tissue abnormality. No a bnormal calcifications are present. Multilevel degenerative changes of the lower spine. The hips appe ar intact. No significant degeneration. IMPRESSION: No acute osseous pathology. Mild degeneration changes of the hip. [facility], , 03/06/2025 4:30 PM
== END | disposition home or self-care (01) ==
LOC: RADXRMAIN 15:26
PROVIDERS: ATTEND Nurse Practitioner Family
DX: R10.84 Generalized abdominal pain (principal); M16.11 Unilateral primary osteoarthritis, right hip
CPT/HCPCS: 72170; 74018

== ENCOUNTER → 2025-03-14 | Outpatient (CLI) | payer MEDICARE, OTHER ==
[2025-03-14 16:55] LABS: African American GFR (CKD) 61 (>60 ml/min/1.73 sqM); Blood Urea Nitrogen 25 mg/dL (7-17); Non-African American GFR(CKD) 53 (>60 ml/min/1.73 sqM)
--- NOTE | 2025-03-14 18:48 | CT ---
EXAMINATION TYPE: CT abdomen pelvis wo/w con DATE OF EXAM: 03/14/2025 6:12 PM COMPARISON: CT abdomen pelvis most recent from 07/06/2024. CLINICAL INDICATION: Female, 79 years old with history of R10.84 GENERALIZED ABDOMINAL PAIN; Generali zed abdominal pain. TECHNIQUE: Axial CT abdomen pelvis wo/w con;Sagittal and coronal reformats were created on a [employer] workstation. Contrast used:100 mL of Isovue 300 without and with IV Contrast, (none if empty) Oral contrast used: with Oral Contrast (none if empty) CT DLP: 1300.2 mGycm, Automated exposure control for dose reduction was used. FINDINGS: LOWER CHEST: Unremarkable ABDOMEN LIVER: Unremarkable GALLBLADDER AND BILE DUCTS: Unremarkable. PANCREAS: Unremarkable. SPLEEN: Unremarkable. ADRENAL GLANDS: Unremarkable. KIDNEYS AND URETERS: No evidence of hydronephrosis or obstructing renal calculus. The ureters are unr emarkable. Bilateral simple appearing renal cysts.. No follow-up recommended. PELVIS BLADDER: No evidence for wall thickening or mass given limitations of exam. REPRODUCTIVE: Unremarkable. ABDOMEN & PELVIS STOMACH AND BOWEL: No evidence of bowel obstruction. Moderate to large stool burden throughout the co buddy. PERITONEUM/RETROPERITONEUM: No evidence of pneumoperitoneum or free fluid. VASCULATURE: No evidence of aortic aneurysm. There are 2 right renal arteries. MUSCULOSKELETAL: No acute osseous abnormalities. Moderate disc degeneration changes are present throu ghout the thoracolumbar spine. Fixation L3-L4 with grade 2 anterolisthesis present. Hardware appears intact. T12 superior endplate sclerosis with Schmorl's node stable back to 2023.. Scoliosis changes s pine apex L2-L3 on the left. There is mild lucency around the right pedicle screw of L4 this is simil ar to prior on 07/06/2024. LYMPH NODES: No gross evidence for lymphadenopathy. SOFT TISSUE/ABDOMINAL WALL: Fat-containing umbilical hernia. IMPRESSION: [facility], , 03/14/2025 6:46 PM
== END | disposition home or self-care (01) ==
LOC: RADCTMAIN 16:07
PROVIDERS: ATTEND Internal Medicine Gastroenterology
DX: R10.84 Generalized abdominal pain (principal)
CPT/HCPCS: 82565; 84520; 74178; 36415; Q9967